=== PATIENT | female | born 1980 | race African-American/Black ===

== ENCOUNTER 2019-02-13 08:21 | Inpatient (IN) | payer MEDICAID ==
[~2019-02-13] VITALS: Ht 152.4 cm; Wt 81.3 kg
[~2019-02-13 08:21] MED LIST: AMLO10TA80 PO; BENZ1TAB7 PO; CLON0.1T PO; FERR-43 PO; FOLI-43 PO; METO-539 PO; MIRT15TA6 PO; OMEP20CA5 PO; PHEN100C12 PO; chlorpromazine; levetiracetam; oxcarbazepine
[2019-02-13 09:32] LABS: BASOPHILS % 0.3 % (0.0-2.0); HEMATOCRIT. 42.3 % (36.0-48.0); HEMOGLOBIN. 14.7 g/dL (12.0-16.0); LYMPHOCYTES % 23.5 % (20.0-50.0); MEAN CORPUSCULAR HEMOGLOBIN 31.2 pg (28.0-32.0); MEAN PLATELET VOLUME 7.5 fl (7.4-10.4); NEUTROPHILS % 65.2 % (40.0-76.0); PLATELET 252 x1000/uL (130-400); RED BLOOD CELL COUNT 4.71 mill/uL (4.2-5.4); RED CELL DISTRIBUTION WIDTH 13.3 % (11.6-14.6)
[2019-02-13 09:38] LABS: CHLORIDE 106 mEq/L (98-107)
[2019-02-13 09:44] LABS: ETHANOL BLOOD < 10 mg/dL
[2019-02-13 09:48] LABS: PHENOBARBITAL 2.1 ug/mL (15.0-40.0)
[2019-02-13 09:59] LABS: CLARITY URINE CLEAR (CLEAR); COLOR URINE YELLOW (YELLOW); KETONES URINE TRACE (NEGATIVE); LEUKOCYTE ESTERASE URINE NEGATIVE (NEGATIVE); NITRITE URINE NEGATIVE (NEGATIVE); OCCULT BLOOD URINE NEGATIVE (NEGATIVE); PH URINE 5.5 (4.5-8.0); PROTEIN URINE NEGATIVE (NEGATIVE); SPECIFIC GRAVITY URINE 1.021 (1.005-1.030); UROBILINOGEN URINE 0.2 E.U./dL (0.2-1.0)
[2019-02-13 10:18] LABS: *COCAINE SCREEN URINE NEGATIVE (NEGATIVE)
[2019-02-13 10:19] LABS: *AMPHETAMINES SCREEN URINE NEGATIVE (NEGATIVE); *BARBITURATES SCREEN URINE NEGATIVE (NEGATIVE); *BENZODIAZEPINES SCREEN URINE NEGATIVE (NEGATIVE); CANNABINOID URINE SCREEN NEGATIVE (NEGATIVE); METHADONE URINE SCREEN NEGATIVE (NEGATIVE); OPIATES URINE SCREEN NEGATIVE (NEGATIVE); PHENCYCLIDINE URINE SCREEN NEGATIVE (NEGATIVE)
[2019-02-14] VITALS (12 sets, daily range): BP systolic 110–121; BP diastolic 53–64
[2019-02-14] MEDS ORDERED: CLONIDINE 0.1MG TABLET PO PRN (05:30)
[2019-02-14] MEDS: OMEPRAZOLE 20MG CAPSULE EXTENDED RELEASE PO SCH (06:49)
[2019-02-14] MEDS: CHLORDIAZEPOXIDE 25MG CAPSULE PO SCH ×2 (06:49→18:02)
[2019-02-14] MEDS: FERROUS SULFATE 300MG/5ML UDC PO SCH (08:00)
[2019-02-14 08:52] LABS: BASOPHILS % 0.3 % (0.0-2.0); HEMATOCRIT. 42.3 % (36.0-48.0); HEMOGLOBIN. 14.6 g/dL (12.0-16.0); LYMPHOCYTES % 21.3 % (20.0-50.0); MEAN CORPUSCULAR HEMOGLOBIN 30.9 pg (28.0-32.0); MEAN CORPUSCULAR VOLUME 89.7 fL (81.0-99.0); MEAN PLATELET VOLUME 7.8 fl (7.4-10.4); MONOCYTES % 9.1 % (2.0-8.0); NEUTROPHILS % 69.3 % (40.0-76.0); PLATELET 279 x1000/uL (130-400); RED BLOOD CELL COUNT 4.72 mill/uL (4.2-5.4); RED CELL DISTRIBUTION WIDTH 13.2 % (11.6-14.6)
[2019-02-14] MEDS ORDERED: LEVETIRACETAM 250MG TABLET PO SCH (09:00)
[2019-02-14] MEDS: AMLODIPINE 10MG TABLET PO SCH (09:04)
[2019-02-14] MEDS: METOPROLOL TARTRATE 50MG TABLET PO SCH ×2 (09:05→21:48)
[2019-02-14] MEDS: OXCARBAZEPINE 300MG TABLET PO SCH ×2 (09:05→21:48)
[2019-02-14] MEDS: FOLIC ACID 1MG TABLET PO SCH (09:05)
[2019-02-14 09:11] LABS: CHLORIDE 105 mEq/L (98-107)
[2019-02-14 09:26] LABS: PHOSPHORUS 4.1 mg/dL (2.5-4.9)
[2019-02-14] MEDS: PHENYTOIN SODIUM EXTENDED 100MG CAPSULE PO SCH (21:46)
[2019-02-14] MEDS: LEVETIRACETAM 500MG TABLET PO SCH (21:48)
[2019-02-14] MEDS: MIRTAZAPINE 15MG TABLET PO SCH (21:48)
[2019-02-14] MEDS: BENZTROPINE MESYLATE 1MG TABLET PO SCH (23:29)
[2019-02-15] VITALS (13 sets, daily range): BP systolic 90–147; BP diastolic 52–97
[2019-02-15] MEDS: CHLORDIAZEPOXIDE 25MG CAPSULE PO SCH ×2 (05:56→17:39)
[2019-02-15] MEDS: OXCARBAZEPINE 300MG TABLET PO SCH ×2 (08:54→21:16)
[2019-02-15] MEDS: OMEPRAZOLE 20MG CAPSULE EXTENDED RELEASE PO SCH (08:54)
[2019-02-15] MEDS: FOLIC ACID 1MG TABLET PO SCH (08:54)
[2019-02-15] MEDS: FERROUS SULFATE 300MG/5ML UDC PO SCH (08:54)
[2019-02-15] MEDS: LEVETIRACETAM 500MG TABLET PO SCH ×2 (08:55→21:16)
[2019-02-15] MEDS: METOPROLOL TARTRATE 50MG TABLET PO SCH ×2 (08:55→21:17)
[2019-02-15] MEDS: AMLODIPINE 10MG TABLET PO SCH (08:55)
[2019-02-15] MEDS: PHENYTOIN SODIUM EXTENDED 100MG CAPSULE PO SCH (21:16)
[2019-02-15] MEDS: BENZTROPINE MESYLATE 1MG TABLET PO SCH (21:16)
[2019-02-15] MEDS: MIRTAZAPINE 15MG TABLET PO SCH (21:16)
[2019-02-16] VITALS (11 sets, daily range): BP systolic 105–162; BP diastolic 49–117
[2019-02-16] MEDS: CHLORDIAZEPOXIDE 25MG CAPSULE PO SCH (05:12)
[2019-02-16] MEDS: FERROUS SULFATE 300MG/5ML UDC PO SCH (08:00)
[2019-02-16] MEDS: FOLIC ACID 1MG TABLET PO SCH (08:40)
[2019-02-16] MEDS: OXCARBAZEPINE 300MG TABLET PO SCH (08:40)
[2019-02-16] MEDS: LEVETIRACETAM 500MG TABLET PO SCH (08:40)
[2019-02-16] MEDS: OMEPRAZOLE 20MG CAPSULE EXTENDED RELEASE PO SCH (08:40)
[2019-02-16] MEDS: AMLODIPINE 10MG TABLET PO SCH (08:40)
[2019-02-16] MEDS: METOPROLOL TARTRATE 50MG TABLET PO SCH (08:41)
== END 2019-02-16 15:10 | disposition home or self-care (01) | DRG 53 ==
LOC: ER 08:21 → 5EST 14:23 → 3WST 14:23 → UNDOADMIN 14:23 → ENRESERV 20:29
PROVIDERS: ADMIT Internal Medicine; ATTEND Internal Medicine
PROC: 4A00X4Z Measurement of Central Nervous Electrical Activity, External Approach (ICD-10-PCS; principal; 2019-02-16)
DX: G40.909 Epilepsy, unspecified, not intractable, without status epilepticus (principal); D32.0 Benign neoplasm of cerebral meninges; I10 Essential (primary) hypertension; R62.50 Unspecified lack of expected normal physiological development in childhood
CPT/HCPCS: 36415; 73552; 73590; 80048; 80184; 80185; 80305; 80320; 82962; 83735; 84100; 99285; G0480

== ENCOUNTER 2019-03-05 06:10 | Inpatient (IN) | payer MEDICAID ==
[~2019-03-05] VITALS: Ht 149.9 cm; Wt 82.1 kg
[2019-03-05] MEDS ORDERED: LIDOCAINE HCL/PF 1% 10 MG/ML 5ML VIAL IJ ONE (06:30)
[2019-03-05 07:30] LABS: CHLORIDE 103 mEq/L (98-107)
[2019-03-05 07:33] LABS: ETHANOL BLOOD < 10 mg/dL
[2019-03-05 07:44] LABS: BASOPHILS % 0.2 % (0.0-2.0); HEMOGLOBIN. 14.4 g/dL (12.0-16.0); LYMPHOCYTES % 15.3 % (20.0-50.0); MEAN CORPUSCULAR HEMOGLOBIN 31.1 pg (28.0-32.0); MEAN CORPUSCULAR VOLUME 90.3 fL (81.0-99.0); MEAN PLATELET VOLUME 8.3 fl (7.4-10.4); MONOCYTES % 7.4 % (2.0-8.0); NEUTROPHILS % 77.1 % (40.0-76.0); PLATELET 252 x1000/uL (130-400); RED BLOOD CELL COUNT 4.65 mill/uL (4.2-5.4); RED CELL DISTRIBUTION WIDTH 13.5 % (11.6-14.6)
[2019-03-05 10:05] LABS: CLARITY URINE CLEAR (CLEAR); COLOR URINE YELLOW (YELLOW); KETONES URINE NEGATIVE (NEGATIVE); LEUKOCYTE ESTERASE URINE NEGATIVE (NEGATIVE); NITRITE URINE NEGATIVE (NEGATIVE); OCCULT BLOOD URINE NEGATIVE (NEGATIVE); PROTEIN URINE NEGATIVE (NEGATIVE); SPECIFIC GRAVITY URINE 1.008 (1.005-1.030); UROBILINOGEN URINE 0.2 E.U./dL (0.2-1.0)
[2019-03-05 10:24] LABS: *AMPHETAMINES SCREEN URINE NEGATIVE (NEGATIVE); *BARBITURATES SCREEN URINE NEGATIVE (NEGATIVE); *BENZODIAZEPINES SCREEN URINE NEGATIVE (NEGATIVE); *COCAINE SCREEN URINE NEGATIVE (NEGATIVE); CANNABINOID URINE SCREEN NEGATIVE (NEGATIVE); METHADONE URINE SCREEN NEGATIVE (NEGATIVE); OPIATES URINE SCREEN NEGATIVE (NEGATIVE); PHENCYCLIDINE URINE SCREEN NEGATIVE (NEGATIVE)
[2019-03-05 12:00] VITALS: BP 155/92
[2019-03-05] MEDS ORDERED: CHLO100T22 PO (14:40)
[2019-03-05] MEDS ORDERED: OXCA600T20 PO (14:40)
[2019-03-05] MEDS ORDERED: LEVE750T66 PO (14:40)
[2019-03-05] MEDS ORDERED: LEVE500T98 PO (14:40)
[2019-03-05] MEDS ORDERED: CHLO200T9 PO (14:40)
[2019-03-05] MEDS ORDERED: ONDANSETRON HCL 4MG TABLET PO PRN (15:00)
[2019-03-05 16:00] VITALS: BP 141/103
[2019-03-05] MEDS: SODIUM CHLORIDE 0.9% 1,000 ML IV SCH (18:24)
[2019-03-05 20:00] VITALS: BP 139/88
[2019-03-05] MEDS: AMLODIPINE 10MG TABLET PO SCH (20:45)
[2019-03-05] MEDS ORDERED: MEDICATION NOT ON FORMULARY EA (Levetiracetam 750 MG) PO SCH (20:45)
[2019-03-05] MEDS: METOPROLOL TARTRATE 50MG TABLET PO SCH (21:00)
[2019-03-05] MEDS: OXCARBAZEPINE 300MG TABLET PO SCH (21:00)
[2019-03-05] MEDS: LEVETIRACETAM 250MG TABLET PO SCH (21:00)
[2019-03-06] VITALS: BP 178/95
[2019-03-06 05:04] VITALS: BP 163/99
[2019-03-06] MEDS ORDERED: HYDRALAZINE 20MG/ML VIAL IV PRN (06:00)
[2019-03-06] MEDS: LORAZEPAM 2MG/ML CPJ IV PRN ×2 (06:08→15:03)
[2019-03-06] MEDS: SODIUM CHLORIDE 0.9% 1,000 ML IV SCH ×2 (06:09→17:47)
[2019-03-06 06:22] LABS: BASOPHILS % 0.2 % (0.0-2.0); HEMOGLOBIN. 13.6 g/dL (12.0-16.0); LYMPHOCYTES % 17.9 % (20.0-50.0); MEAN CORPUSCULAR HEMOGLOBIN 31.3 pg (28.0-32.0); MEAN CORPUSCULAR VOLUME 89.9 fL (81.0-99.0); MEAN PLATELET VOLUME 8.1 fl (7.4-10.4); MONOCYTES % 9.6 % (2.0-8.0); NEUTROPHILS % 72.3 % (40.0-76.0); PLATELET 258 x1000/uL (130-400); RED BLOOD CELL COUNT 4.34 mill/uL (4.2-5.4); RED CELL DISTRIBUTION WIDTH 13.6 % (11.6-14.6)
[2019-03-06 07:39] LABS: CHLORIDE 109 mEq/L (98-107)
[2019-03-06] MEDS ORDERED: ENOXAPARIN 30MG/0.3ML SYR SUBCUT SCH (09:00)
[2019-03-06] MEDS: LEVETIRACETAM 250MG TABLET PO SCH ×2 (11:13→17:44)
[2019-03-06] MEDS: AMLODIPINE 10MG TABLET PO SCH (11:14)
[2019-03-06] MEDS: METOPROLOL TARTRATE 50MG TABLET PO SCH ×2 (11:14→21:06)
[2019-03-06] MEDS: ACETAMINOPHEN 325MG TABLET PO PRN (11:14)
[2019-03-06] MEDS: OXCARBAZEPINE 300MG TABLET PO SCH ×2 (11:14→21:06)
[2019-03-06 12:00] VITALS: BP 176/102
[2019-03-06 16:00] VITALS: BP 144/84
[2019-03-06] MEDS: CLONIDINE 0.1MG TABLET PO SCH (17:30)
[2019-03-06] MEDS: MIRTAZAPINE 15MG TABLET PO SCH (17:44)
[2019-03-06 20:00] VITALS: BP 113/52
[2019-03-06 21:03] VITALS: BP 125/69
[2019-03-07] VITALS: BP 132/87
[2019-03-07 04:00] VITALS: BP 141/87
[2019-03-07] MEDS: SODIUM CHLORIDE 0.9% 1,000 ML IV SCH ×2 (06:44→20:44)
[2019-03-07 06:51] LABS: BASOPHILS % 0.2 % (0.0-2.0); HEMATOCRIT. 36.8 % (36.0-48.0); HEMOGLOBIN. 12.8 g/dL (12.0-16.0); LYMPHOCYTES % 22.9 % (20.0-50.0); MEAN CORPUSCULAR HEMOGLOBIN 31.5 pg (28.0-32.0); MEAN CORPUSCULAR VOLUME 90.4 fL (81.0-99.0); MEAN PLATELET VOLUME 8.2 fl (7.4-10.4); MONOCYTES % 9.4 % (2.0-8.0); NEUTROPHILS % 67.5 % (40.0-76.0); PLATELET 243 x1000/uL (130-400); RED BLOOD CELL COUNT 4.07 mill/uL (4.2-5.4); RED CELL DISTRIBUTION WIDTH 13.4 % (11.6-14.6)
[2019-03-07 07:54] LABS: CHLORIDE 110 mEq/L (98-107)
[2019-03-07 08:00] VITALS: BP 156/104
[2019-03-07] MEDS: ENOXAPARIN 40MG/0.4ML SYR SUBCUT SCH (09:53)
[2019-03-07] MEDS: OXCARBAZEPINE 300MG TABLET PO SCH ×2 (09:53→20:42)
[2019-03-07] MEDS: LEVETIRACETAM 250MG TABLET PO SCH ×2 (09:53→16:14)
[2019-03-07] MEDS: AMLODIPINE 10MG TABLET PO SCH (09:54)
[2019-03-07] MEDS: METOPROLOL TARTRATE 50MG TABLET PO SCH ×2 (09:54→20:42)
[2019-03-07 11:54] VITALS: BP 145/96
[2019-03-07] MEDS: LORAZEPAM 2MG/ML CPJ IV PRN (13:28)
[2019-03-07 16:06] VITALS: BP 159/102
[2019-03-07] MEDS: CLONIDINE 0.1MG TABLET PO SCH (16:14)
[2019-03-07] MEDS: MIRTAZAPINE 15MG TABLET PO SCH (16:14)
[2019-03-07 20:00] VITALS: BP 154/79
[2019-03-07] MEDS ORDERED: PHENYTOIN SODIUM EXTENDED 100MG CAPSULE PO SCH (21:00)
[2019-03-08] VITALS (7 sets, daily range): BP systolic 107–170; BP diastolic 59–96
[2019-03-08] MEDS: LORAZEPAM 2MG/ML CPJ IV PRN (02:19)
[2019-03-08 07:15] LABS: BASOPHILS % 0.2 % (0.0-2.0); HEMATOCRIT. 40.2 % (36.0-48.0); HEMOGLOBIN. 13.9 g/dL (12.0-16.0); LYMPHOCYTES % 21.8 % (20.0-50.0); MEAN CORPUSCULAR HEMOGLOBIN 31.3 pg (28.0-32.0); MEAN CORPUSCULAR VOLUME 90.6 fL (81.0-99.0); MEAN PLATELET VOLUME 8.2 fl (7.4-10.4); MONOCYTES % 10.1 % (2.0-8.0); NEUTROPHILS % 67.9 % (40.0-76.0); PLATELET 270 x1000/uL (130-400); RED BLOOD CELL COUNT 4.44 mill/uL (4.2-5.4); RED CELL DISTRIBUTION WIDTH 13.2 % (11.6-14.6)
[2019-03-08] MEDS: LEVETIRACETAM 250MG TABLET PO SCH (09:28)
[2019-03-08] MEDS: OXCARBAZEPINE 300MG TABLET PO SCH (09:28)
[2019-03-08] MEDS: AMLODIPINE 10MG TABLET PO SCH (09:29)
[2019-03-08] MEDS: METOPROLOL TARTRATE 50MG TABLET PO SCH (09:29)
[2019-03-08] MEDS: ENOXAPARIN 40MG/0.4ML SYR SUBCUT SCH (09:30)
[2019-03-08] MEDS: ACETAMINOPHEN 325MG TABLET PO PRN (16:41)
== END 2019-03-08 17:18 | disposition home or self-care (01) | DRG 199 ==
LOC: ER 06:21 → 6WST 10:26 → EDBEDREQTM 10:29 → EDBEDREQ 10:29 → ENRESERV 10:39 → 5WST 03-08 12:08
PROVIDERS: ADMIT Internal Medicine; ATTEND Internal Medicine
PROC: 0CQ0XZZ Repair Upper Lip, External Approach (ICD-10-PCS; 2019-03-05)
PROC: 4A00X4Z Measurement of Central Nervous Electrical Activity, External Approach (ICD-10-PCS; principal; 2019-03-07)
DX: I16.0 Hypertensive urgency (principal); G40.409 Other generalized epilepsy and epileptic syndromes, not intractable, without status epilepticus; I10 Essential (primary) hypertension; S01.511A Laceration without foreign body of lip, initial encounter; T42.0X5A Adverse effect of hydantoin derivatives, initial encounter; X58.XXXA Exposure to other specified factors, initial encounter; Z86.011 Personal history of benign neoplasm of the brain; Z79.899 Other long term (current) drug therapy; Y93.89 Activity, other specified; Y92.89 Other specified places as the place of occurrence of the external cause; Y99.8 Other external cause status
CPT/HCPCS: 12011; 36415; 80048; 80185; 80305; 80320; 82542; 92610; 99285; C1893; J0360; J1650; J2060; J3490; J7030; G0480

== ENCOUNTER 2019-11-07 08:24 | Emergency (ER) | payer MEDICAID ==
[~2019-11-07] VITALS: Ht 149.9 cm; Wt 91.0 kg
[~2019-11-07 08:24] MED LIST changes: +CHLO100T22 PO; +CHLO200T9 PO; +LEVE500T98 PO; +LEVE750T66 PO; +OMEP20CA14 PO; -OMEP20CA5 PO; +OXCA600T20 PO; -chlorpromazine; -levetiracetam; -oxcarbazepine
[2019-11-07] MEDS ORDERED: LIDOCAINE HCL/PF 1% 10 MG/ML 5ML VIAL IJ ONE (09:00)
[2019-11-07] MEDS ORDERED: BACITRACIN ZINC OINT UDPKT TOP ONE ×2 (09:00→10:00)
[2019-11-07] MEDS ORDERED: ACETAMINOPHEN 325MG TABLET PO ONE (09:00)
[2019-11-07 11:52] VITALS: BP 129/78
== END 2019-11-07 11:59 | disposition home or self-care (01) ==
LOC: ER 08:24
DX: S09.8XXA Other specified injuries of head, initial encounter (principal); S01.119A Laceration without foreign body of unspecified eyelid and periocular area, initial encounter; I10 Essential (primary) hypertension; R56.9 Unspecified convulsions; D64.9 Anemia, unspecified; W18.11XA Fall from or off toilet without subsequent striking against object, initial encounter; Y93.F9 Activity, other caregiving
CPT/HCPCS: 12011; 70450; 99284; J3490

== ENCOUNTER 2021-10-19 15:50 | Inpatient (IN) | payer MEDICAID, OTHER ==
[~2021-10-19] VITALS: Ht 157.5 cm; Wt 64.4 kg
[~2021-10-19 15:50] MED LIST changes: +AMLO10TA4 MT; +ASCO-316 PO; +BENZ1TAB7 MT; +CHOL400D7 PO; +DES150 MT; +DOCU-150 MT; +LEVE1000 MT; +LOSA50TA3 MT; +MIRT-89 PO; -MIRT15TA6 PO; +OLAN10TA3 MT; +OMEP20TA2 MT; +TEMA30CA MT
[2021-10-19] MEDS ORDERED: ASPIRIN 81MG TABLET PO ONE (16:15)
[2021-10-19] MEDS ORDERED: CEFTRIAXONE 1 G PREMIX 50 ML IV ONE (16:30)
[2021-10-19] MEDS: LACTATED RINGERS 1,000 ML IV SCH ×2 (17:37→20:24)
[2021-10-19 17:46] LABS: BASOPHILS % 0.2 % (0.0-2.0); EOSINOPHILS % 0.1 % (0.0-5.0); HEMATOCRIT. 31.3 % (36.0-48.0); HEMOGLOBIN. 10.6 g/dL (12.0-16.0); LYMPHOCYTES % 12.6 % (20.0-50.0); MEAN CORPUSCULAR HEMOGLOBIN 29.2 pg (28.0-32.0); MEAN CORPUSCULAR VOLUME 85.9 fL (81.0-99.0); MEAN PLATELET VOLUME 10.1 fl (7.4-10.4); MONOCYTES % 2.7 % (2.0-8.0); NEUTROPHILS % 84.4 % (40.0-76.0); PLATELET 71 x1000/uL (130-400); RED BLOOD CELL COUNT 3.65 mill/uL (4.2-5.4); RED CELL DISTRIBUTION WIDTH 17.9 % (11.6-14.6)
[2021-10-19 17:53] LABS: CHLORIDE 110 mEq/L (98-107)
[2021-10-19] MEDS ORDERED: LACTATED RINGERS 1,000 ML IV SCH (19:45)
[2021-10-19] MEDS ORDERED: PIPERACILLIN/TAZ 3.375G PREMIX 50 ML IV ONE (19:45)
[2021-10-19] MEDS ORDERED: NOREPINEPHRINE 8MG/250ML PMX 250 ML IV ONE (21:45)
[2021-10-19] MEDS ORDERED: NOREPINEPHRINE 8 MG in SODIUM CHLORIDE 0.9% 250 ML IV ONE (22:30)
[2021-10-19] MEDS ORDERED: NOREPINEPHRINE 8 MG in SODIUM CHLORIDE 0.9% 242 ML IV ONE (22:30)
[2021-10-20] VITALS (7 sets, daily range): BP systolic 91–127; BP diastolic 53–68
[2021-10-20 01:18] LABS: CLARITY URINE CLEAR (CLEAR); COLOR URINE YELLOW (YELLOW); KETONES URINE NEGATIVE (NEGATIVE); LEUKOCYTE ESTERASE URINE NEGATIVE (NEGATIVE); NITRITE URINE NEGATIVE (NEGATIVE); OCCULT BLOOD URINE 1+ (NEGATIVE); PROTEIN URINE 1+ (NEGATIVE); SPECIFIC GRAVITY URINE 1.019 (1.005-1.030); UROBILINOGEN URINE 0.2 E.U./dL (0.2-1.0)
[2021-10-20] MEDS ORDERED: ACETAMINOPHEN 325MG TABLET PO PRN (10:00)
[2021-10-20] MEDS ORDERED: CEFEPIME 1,000 MG in DEXTROSE 5% WATER 50 ML IV SCH ×2 (10:00→14:00)
[2021-10-20] MEDS ORDERED: IPRATROPIUM/ALBUTEROL 0.5-3(2.5)MG/3ML NEB HHN PRN ×2 (10:00→16:30)
[2021-10-20] MEDS: ONDANSETRON HCL 4MG/2ML INJ IV PRN (11:54)
[2021-10-20] MEDS ORDERED: BISACODYL 10MG SUPP PR NR (16:30)
[2021-10-20] MEDS: TRAZODONE HCL 50MG TABLET PO SCH ×2 (16:55→16:56)
[2021-10-20] MEDS ORDERED: OLANZAPINE 10MG TABLET PO SCH (17:00)
[2021-10-20] MEDS: PIPERACILLIN/TAZOBACTAM 3.375 G in DEXTROSE 5% WATER 50 ML IV SCH ×2 (17:23→23:13)
[2021-10-20] MEDS ORDERED: IPRATROPIUM/ALBUTEROL 0.5-3(2.5)MG/3ML NEB HHN SCH (18:00)
[2021-10-20] MEDS ORDERED: TEMAZEPAM 15MG CAPSULE PO SCH (21:00)
[2021-10-20] MEDS ORDERED: TEMAZEPAM 15MG CAPSULE PO ONE (21:00)
[2021-10-20] MEDS ORDERED: LEVETIRACETAM 500MG/5ML CUP PO SCH (21:00)
[2021-10-20] MEDS: BENZTROPINE MESYLATE 1MG TABLET PO SCH (21:00)
[2021-10-21] VITALS (37 sets, daily range): BP systolic 55–139; BP diastolic 27–112
[2021-10-21] MEDS: PIPERACILLIN/TAZOBACTAM 3.375 G in DEXTROSE 5% WATER 50 ML IV SCH ×3 (05:38→22:15)
[2021-10-21 06:50] LABS: BASOPHILS % 0.1 % (0.0-2.0); EOSINOPHILS % 0.1 % (0.0-5.0); HEMATOCRIT. 29.3 % (36.0-48.0); HEMOGLOBIN. 10.3 g/dL (12.0-16.0); LYMPHOCYTES % 10.1 % (20.0-50.0); MEAN CORPUSCULAR HEMOGLOBIN 30.3 pg (28.0-32.0); MEAN CORPUSCULAR VOLUME 86.5 fL (81.0-99.0); MEAN PLATELET VOLUME 10.5 fl (7.4-10.4); MONOCYTES % 2.2 % (2.0-8.0); NEUTROPHILS % 87.5 % (40.0-76.0); PLATELET 55 x1000/uL (130-400); RED BLOOD CELL COUNT 3.39 mill/uL (4.2-5.4); RED CELL DISTRIBUTION WIDTH 18.9 % (11.6-14.6)
[2021-10-21 06:58] LABS: CHLORIDE 111 mEq/L (98-107)
[2021-10-21] MEDS ORDERED: OMEPRAZOLE 20MG CAPSULE EXTENDED RELEASE PO SCH (07:30)
[2021-10-21] MEDS ORDERED: DEXTROSE 50% WATER 50ML SYRINGE IV NR (07:45)
[2021-10-21] MEDS: LEVETIRACETAM 1,000 MG in SODIUM CHLORIDE 0.9% 100 ML IV SCH ×2 (08:22→21:41)
[2021-10-21] MEDS: PANTOPRAZOLE SODIUM 40 MG/VIAL IV SCH (08:53)
[2021-10-21] MEDS: TRAZODONE HCL 50MG TABLET PO SCH (08:55)
[2021-10-21] MEDS: BENZTROPINE MESYLATE 1MG TABLET PO SCH ×2 (08:55→21:42)
[2021-10-21] MEDS: LOSARTAN POTASSIUM 50 MG TABLET PO SCH (08:55)
[2021-10-21] MEDS: DOCUSATE SODIUM 100MG CAPSULE PO SCH (08:55)
[2021-10-21] MEDS: AMLODIPINE 10MG TABLET PO SCH (08:55)
[2021-10-21] MEDS: ASCORBIC ACID 500 MG TABLET PO SCH ×2 (09:00→16:46)
[2021-10-21] MEDS ORDERED: OLANZAPINE 10 MG/VIAL IM SCH (09:00)
[2021-10-21] MEDS ORDERED: SODIUM CHLORIDE 0.9% 500 ML IV ONE (11:45)
[2021-10-21] MEDS ORDERED: MIDODRINE HCL 5MG TABLET PO SCH (12:00)
[2021-10-21] MEDS ORDERED: DEXT 5%/0.9% NACL 1,000 ML IV SCH (12:00)
[2021-10-21] MEDS: DEXT 5%/0.45% NACL 1000ML 1,000 ML IV SCH (12:05)
[2021-10-21] MEDS: MIDODRINE HCL 5MG TABLET PO SCH ×3 (13:21→17:15)
[2021-10-21 13:44] LABS: BG BASE EXCESS -1.1 mmol/L (-2.0-2.0); BG CARBOXYHEMOGLOBIN 0.3 % (0.5-1.5); BG DEOXYHEMOGLOBIN 8.9 % (0.0-5.0); BG FRACTION INSPIRED OXYGEN 100; BG HCO3 ACT 23.7 mmol/L (22.0-26.0); BG METHEMOGLOBIN 0.1 % (0.0-1.5); BG OXYGEN SATURATION 91.1 % (92.0-98.5); BG OXYHEMOGLOBIN 90.7 % (94.0-97.0); BG PCO2 40.1 mmHg (35.0-45.0); BG PO2 63.6 mmHg (75.0-100.0); BG SAMPLE SITE RIGHT RADIAL; BG TOTAL HEMOGLOBIN 9.6 g/dL (12.0-18.0); BG VENT MODE MASK - NRB
[2021-10-21] MEDS: METHYLPREDNISOLONE SOD SUCC 40 MG/ML VIAL IV SCH (15:55)
[2021-10-21] MEDS: IPRATROPIUM/ALBUTEROL 0.5-3(2.5)MG/3ML NEB HHN SCH (20:34)
[2021-10-21] MEDS: NOREPINEPHRINE 32 MG in DEXT 5% WATER 218 ML IV PRN (22:20)
[2021-10-22] VITALS (95 sets, daily range): BP systolic 37–163; BP diastolic 15–90
[2021-10-22] MEDS: IPRATROPIUM/ALBUTEROL 0.5-3(2.5)MG/3ML NEB HHN SCH ×6 (00:22→20:16)
[2021-10-22] MEDS: BLOOD SUGAR DIAGNOSTIC STRIP TEST SCH ×4 (00:39→18:03)
[2021-10-22] MEDS: DEXT 5%/0.45% NACL 1000ML 1,000 ML IV SCH ×2 (01:41→15:35)
[2021-10-22] MEDS: METHYLPREDNISOLONE SOD SUCC 40 MG/ML VIAL IV SCH ×3 (03:44→18:12)
[2021-10-22] MEDS: PIPERACILLIN/TAZOBACTAM 3.375 G in DEXTROSE 5% WATER 50 ML IV SCH ×3 (06:02→21:08)
[2021-10-22 06:34] LABS: HEMATOCRIT. 28.9 % (36.0-48.0); HEMOGLOBIN. 9.6 g/dL (12.0-16.0); MEAN CORPUSCULAR HEMOGLOBIN 29.7 pg (28.0-32.0); MEAN CORPUSCULAR VOLUME 88.9 fL (81.0-99.0); MEAN PLATELET VOLUME 10.8 fl (7.4-10.4); PLATELET 77 x1000/uL (130-400); RED BLOOD CELL COUNT 3.25 mill/uL (4.2-5.4); RED CELL DISTRIBUTION WIDTH 19.3 % (11.6-14.6)
[2021-10-22 06:49] LABS: INR 1.3; PARTIAL THROMBOPLASTIN TIME 38.8 sec (23.4-31.0); PROTHROMBIN TIME 13.8 sec (9.6-11.0)
[2021-10-22] MEDS: AMLODIPINE 10MG TABLET PO SCH (09:00)
[2021-10-22] MEDS: LOSARTAN POTASSIUM 50 MG TABLET PO SCH (09:00)
[2021-10-22] MEDS ORDERED: SODIUM CHLORIDE 0.9% 10ML VIAL ONE (09:14)
[2021-10-22] MEDS ORDERED: VECURONIUM BROMIDE 10 MG/VIAL IV ONE (09:14)
[2021-10-22] MEDS ORDERED: ETOMIDATE 2MG/ML 10ML VIAL IV ONE (09:14)
[2021-10-22 09:32] LABS: BG BASE EXCESS -9.3 mmol/L (-2.0-2.0); BG DEOXYHEMOGLOBIN 9.6 % (0.0-5.0); BG HCO3 ACT 16.8 mmol/L (22.0-26.0); BG METHEMOGLOBIN 0.3 % (0.0-1.5); BG OXYGEN SATURATION 90.4 % (92.0-98.5); BG OXYHEMOGLOBIN 90.1 % (94.0-97.0); BG PH 7.274 (7.350-7.450); BG PO2 70.9 mmHg (75.0-100.0); BG SAMPLE SITE RIGHT RADIAL; BG TOTAL HEMOGLOBIN 10.1 g/dL (12.0-18.0); BG VENT MODE MASK - NRB
[2021-10-22] MEDS: PANTOPRAZOLE SODIUM 40 MG/VIAL IV SCH (09:44)
[2021-10-22] MEDS: ONDANSETRON HCL 4MG/2ML INJ IV PRN (09:44)
[2021-10-22] MEDS: DOCUSATE SODIUM 100MG CAPSULE PO SCH (09:45)
[2021-10-22] MEDS: BENZTROPINE MESYLATE 1MG TABLET PO SCH ×2 (09:47→21:08)
[2021-10-22] MEDS: ASCORBIC ACID 500 MG TABLET PO SCH ×2 (09:47→16:44)
[2021-10-22] MEDS: MIDODRINE HCL 5MG TABLET PO SCH ×3 (09:47→16:44)
[2021-10-22 10:17] LABS: NUCLEATED RED BLOOD CELLS 3 /100 WBC; PLATELET ESTIMATE DECREASED
[2021-10-22] MEDS ORDERED: SODIUM BICARBONATE 8.4% 1 MEQ/ML 50ML SYR IV NR (11:00)
[2021-10-22] MEDS ORDERED: FENTANYL CITRATE/PF 2,500 MCG in SODIUM CHLORIDE 0.9% 200 ML IV PRN (12:30)
[2021-10-22] MEDS ORDERED: MIDAZOLAM HCL 100 MG in SODIUM CHLORIDE 0.9% 80 ML IV PRN (12:30)
[2021-10-22] MEDS: LEVETIRACETAM 1,000 MG in SODIUM CHLORIDE 0.9% 100 ML IV SCH ×2 (14:24→21:08)
[2021-10-22 14:27] LABS: BG BASE EXCESS -2.4 mmol/L (-2.0-2.0); BG CARBOXYHEMOGLOBIN 0.3 % (0.5-1.5); BG FRACTION INSPIRED OXYGEN 100; BG HCO3 ACT 21.2 mmol/L (22.0-26.0); BG METHEMOGLOBIN 0.5 % (0.0-1.5); BG OXYHEMOGLOBIN 98.2 % (94.0-97.0); BG PCO2 32.3 mmHg (35.0-45.0); BG PH 7.435 (7.350-7.450); BG PO2 264.4 mmHg (75.0-100.0); BG SAMPLE SITE RIGHT RADIAL; BG TOTAL HEMOGLOBIN 10.1 g/dL (12.0-18.0); BG VENT MODE VENT - AC/VC
[2021-10-22] MEDS: NOREPINEPHRINE 32 MG in DEXT 5% WATER 218 ML IV PRN (16:45)
[2021-10-23] VITALS (93 sets, daily range): BP systolic 81–176; BP diastolic 38–102
[2021-10-23] MEDS: IPRATROPIUM/ALBUTEROL 0.5-3(2.5)MG/3ML NEB HHN SCH ×5 (00:14→20:57)
[2021-10-23] MEDS: BLOOD SUGAR DIAGNOSTIC STRIP TEST SCH ×4 (00:34→17:16)
[2021-10-23] MEDS: METHYLPREDNISOLONE SOD SUCC 40 MG/ML VIAL IV SCH ×3 (03:12→18:35)
[2021-10-23] MEDS: DEXT 5%/0.45% NACL 1000ML 1,000 ML IV SCH ×2 (04:01→20:14)
[2021-10-23] MEDS: PIPERACILLIN/TAZOBACTAM 3.375 G in DEXTROSE 5% WATER 50 ML IV SCH (06:54)
[2021-10-23] MEDS: DOPAMINE 800MG PREMIX (DOUBLE) 250 ML IV PRN ×2 (07:00→20:55)
[2021-10-23 07:40] LABS: HEMATOCRIT. 27.3 % (36.0-48.0); HEMOGLOBIN. 9.2 g/dL (12.0-16.0); MEAN CORPUSCULAR HEMOGLOBIN 29.2 pg (28.0-32.0); MEAN CORPUSCULAR VOLUME 87.4 fL (81.0-99.0); MEAN PLATELET VOLUME 10.4 fl (7.4-10.4); PLATELET 74 x1000/uL (130-400); RED BLOOD CELL COUNT 3.13 mill/uL (4.2-5.4); RED CELL DISTRIBUTION WIDTH 19.9 % (11.6-14.6)
[2021-10-23 08:14] LABS: BG BASE EXCESS 2.7 mmol/L (-2.0-2.0); BG CARBOXYHEMOGLOBIN 0.1 % (0.5-1.5); BG DEOXYHEMOGLOBIN 1.2 % (0.0-5.0); BG FRACTION INSPIRED OXYGEN 60; BG METHEMOGLOBIN 0.5 % (0.0-1.5); BG OXYGEN SATURATION 98.8 % (92.0-98.5); BG OXYHEMOGLOBIN 98.2 % (94.0-97.0); BG PH 7.539 (7.350-7.450); BG PO2 206.6 mmHg (75.0-100.0); BG SAMPLE SITE RIGHT RADIAL; BG TOTAL HEMOGLOBIN 9.2 g/dL (12.0-18.0); BG VENT MODE VENT - AC/VC
[2021-10-23 08:15] LABS: NUCLEATED RED BLOOD CELLS 1 /100 WBC; PLATELET ESTIMATE DECREASED
[2021-10-23] MEDS: AMLODIPINE 10MG TABLET PO SCH (09:00)
[2021-10-23] MEDS: LOSARTAN POTASSIUM 50 MG TABLET PO SCH (09:00)
[2021-10-23] MEDS: ASCORBIC ACID 500 MG TABLET PO SCH ×2 (09:30→17:17)
[2021-10-23] MEDS: BENZTROPINE MESYLATE 1MG TABLET PO SCH ×2 (09:30→21:01)
[2021-10-23] MEDS: PANTOPRAZOLE SODIUM 40 MG/VIAL IV SCH (09:30)
[2021-10-23] MEDS: MIDODRINE HCL 5MG TABLET PO SCH ×3 (09:30→17:17)
[2021-10-23] MEDS: LEVETIRACETAM 1,000 MG in SODIUM CHLORIDE 0.9% 100 ML IV SCH ×2 (09:30→20:56)
[2021-10-23] MEDS: DOCUSATE SODIUM 100MG CAPSULE PO SCH (09:30)
[2021-10-23] MEDS ORDERED: DEXTROSE 50% WATER 50ML SYRINGE IV PRN (12:00)
[2021-10-23] MEDS ORDERED: BLOOD SUGAR DIAGNOSTIC STRIP TEST SCH (12:50)
[2021-10-23] MEDS: INSULIN LISPRO 100 UNITS/ML SUBCUT SCH ×2 (13:54→17:21)
[2021-10-23] MEDS: ATROPINE SULFATE 1MG/10ML SYR IV PRN (15:19)
[2021-10-23] MEDS: CEFEPIME 1,000 MG in DEXTROSE 5% WATER 50 ML IV SCH (15:28)
[2021-10-23] MEDS: LACTULOSE 20G/30ML UDC PO SCH (22:48)
[2021-10-24] VITALS (88 sets, daily range): BP systolic 86–148; BP diastolic 33–78
[2021-10-24] MEDS: BLOOD SUGAR DIAGNOSTIC STRIP TEST SCH ×4 (00:23→17:33)
[2021-10-24] MEDS: IPRATROPIUM/ALBUTEROL 0.5-3(2.5)MG/3ML NEB HHN SCH ×5 (01:29→20:29)
[2021-10-24] MEDS: METHYLPREDNISOLONE SOD SUCC 40 MG/ML VIAL IV SCH ×3 (03:43→18:22)
[2021-10-24] MEDS: INSULIN LISPRO 100 UNITS/ML SUBCUT SCH ×4 (06:00→17:33)
[2021-10-24] MEDS: CEFEPIME 1,000 MG in DEXTROSE 5% WATER 50 ML IV SCH ×2 (06:09→18:23)
[2021-10-24] MEDS: LACTULOSE 20G/30ML UDC PO SCH ×3 (06:10→21:11)
[2021-10-24 06:11] LABS: HEMATOCRIT. 25.5 % (36.0-48.0); HEMOGLOBIN. 8.4 g/dL (12.0-16.0); MEAN CORPUSCULAR HEMOGLOBIN 29.3 pg (28.0-32.0); MEAN CORPUSCULAR VOLUME 89.1 fL (81.0-99.0); MEAN PLATELET VOLUME 10.3 fl (7.4-10.4); PLATELET 72 x1000/uL (130-400); RED BLOOD CELL COUNT 2.86 mill/uL (4.2-5.4); RED CELL DISTRIBUTION WIDTH 19.5 % (11.6-14.6)
[2021-10-24] MEDS: DEXT 5%/0.45% NACL 1000ML 1,000 ML IV SCH ×2 (06:11→20:46)
[2021-10-24 06:20] LABS: CHLORIDE 113 mEq/L (98-107)
[2021-10-24] MEDS: DOPAMINE 800MG PREMIX (DOUBLE) 250 ML IV PRN (07:13)
[2021-10-24 08:49] LABS: BG BASE EXCESS -0.4 mmol/L (-2.0-2.0); BG CARBOXYHEMOGLOBIN 0.5 % (0.5-1.5); BG FRACTION INSPIRED OXYGEN 50; BG HCO3 ACT 22.9 mmol/L (22.0-26.0); BG METHEMOGLOBIN 0.7 % (0.0-1.5); BG OXYHEMOGLOBIN 97.8 % (94.0-97.0); BG PCO2 31.9 mmHg (35.0-45.0); BG PH 7.474 (7.350-7.450); BG PO2 178.2 mmHg (75.0-100.0); BG SAMPLE SITE LEFT RADIAL; BG TOTAL HEMOGLOBIN 8.5 g/dL (12.0-18.0); BG TOTAL RESPIRATORY RATE 23 b/min; BG VENT MODE VENT - AC
[2021-10-24] MEDS: DOCUSATE SODIUM 100MG CAPSULE PO SCH (09:00)
[2021-10-24] MEDS: PANTOPRAZOLE SODIUM 40 MG/VIAL IV SCH (09:08)
[2021-10-24] MEDS: ASCORBIC ACID 500 MG TABLET PO SCH ×2 (09:10→18:22)
[2021-10-24] MEDS: MIDODRINE HCL 5MG TABLET PO SCH ×3 (09:11→18:23)
[2021-10-24] MEDS: BENZTROPINE MESYLATE 1MG TABLET PO SCH ×2 (09:11→21:11)
[2021-10-24] MEDS: LEVETIRACETAM 1,000 MG in SODIUM CHLORIDE 0.9% 100 ML IV SCH ×2 (10:05→21:24)
[2021-10-24 10:36] LABS: NUCLEATED RED BLOOD CELLS 3 /100 WBC; PLATELET ESTIMATE DECREASED
[2021-10-25] VITALS (89 sets, daily range): BP systolic 53–190; BP diastolic 33–148
[2021-10-25] MEDS: BLOOD SUGAR DIAGNOSTIC STRIP TEST SCH ×4 (00:23→17:15)
[2021-10-25] MEDS: INSULIN LISPRO 100 UNITS/ML SUBCUT SCH ×4 (00:24→17:15)
[2021-10-25] MEDS: ATROPINE SULFATE 1MG/10ML SYR IV PRN (01:32)
[2021-10-25] MEDS: IPRATROPIUM/ALBUTEROL 0.5-3(2.5)MG/3ML NEB HHN SCH ×6 (01:39→21:07)
[2021-10-25] MEDS: METHYLPREDNISOLONE SOD SUCC 40 MG/ML VIAL IV SCH ×4 (03:24→23:34)
[2021-10-25] MEDS: LACTULOSE 20G/30ML UDC PO SCH ×3 (05:15→22:00)
[2021-10-25] MEDS: CEFEPIME 1,000 MG in DEXTROSE 5% WATER 50 ML IV SCH (05:15)
[2021-10-25] MEDS ORDERED: ATROPINE SULFATE 1MG/10ML SYR IV PRN (06:45)
[2021-10-25 07:00] LABS: CHLORIDE 116 mEq/L (98-107)
[2021-10-25 07:02] LABS: BASOPHILS % 0.2 % (0.0-2.0); EOSINOPHILS % 0.8 % (0.0-5.0); HEMATOCRIT. 22.6 % (36.0-48.0); HEMOGLOBIN. 7.7 g/dL (12.0-16.0); LYMPHOCYTES % 7.9 % (20.0-50.0); MEAN CORPUSCULAR HEMOGLOBIN 30.6 pg (28.0-32.0); MEAN CORPUSCULAR VOLUME 90.3 fL (81.0-99.0); MEAN PLATELET VOLUME 9.7 fl (7.4-10.4); MONOCYTES % 2.8 % (2.0-8.0); NEUTROPHILS % 88.3 % (40.0-76.0); PLATELET 84 x1000/uL (130-400); RED CELL DISTRIBUTION WIDTH 19.3 % (11.6-14.6)
[2021-10-25] MEDS: MIDODRINE HCL 5MG TABLET PO SCH ×3 (09:00→16:20)
[2021-10-25] MEDS: DOCUSATE SODIUM 100MG CAPSULE PO SCH (09:00)
[2021-10-25 09:12] LABS: BG BASE EXCESS 0.4 mmol/L (-2.0-2.0); BG CARBOXYHEMOGLOBIN 0.3 % (0.5-1.5); BG DEOXYHEMOGLOBIN 1.6 % (0.0-5.0); BG FRACTION INSPIRED OXYGEN 40; BG HCO3 ACT 24.5 mmol/L (22.0-26.0); BG METHEMOGLOBIN 0.3 % (0.0-1.5); BG OXYGEN SATURATION 98.4 % (92.0-98.5); BG OXYHEMOGLOBIN 97.8 % (94.0-97.0); BG PCO2 37.1 mmHg (35.0-45.0); BG PH 7.437 (7.350-7.450); BG PO2 136.5 mmHg (75.0-100.0); BG SAMPLE SITE RIGHT RADIAL; BG TOTAL HEMOGLOBIN 8.8 g/dL (12.0-18.0); BG TOTAL RESPIRATORY RATE 17 b/min; BG VENT MODE VENT - AC
[2021-10-25] MEDS: DEXT 5%/0.45% NACL 1000ML 1,000 ML IV SCH (09:55)
[2021-10-25] MEDS: PANTOPRAZOLE SODIUM 40 MG/VIAL IV SCH (09:55)
[2021-10-25] MEDS: ASCORBIC ACID 500 MG TABLET PO SCH ×2 (09:55→16:20)
[2021-10-25] MEDS: BENZTROPINE MESYLATE 1MG TABLET PO SCH ×2 (09:55→21:00)
[2021-10-25] MEDS: LEVETIRACETAM 1,000 MG in SODIUM CHLORIDE 0.9% 100 ML IV SCH ×2 (09:55→22:57)
[2021-10-25] MEDS ORDERED: POTASSIUM CHLORIDE 20MEQ/PACKET PO SCH (13:00)
[2021-10-25] MEDS: LEVOFLOXACIN 750MG PREMIX 150 ML IV SCH (16:19)
[2021-10-25] MEDS: DOPAMINE 800MG PREMIX (DOUBLE) 250 ML IV PRN (16:20)
[2021-10-26] VITALS (91 sets, daily range): BP systolic 112–168; BP diastolic 54–150
[2021-10-26] MEDS: BLOOD SUGAR DIAGNOSTIC STRIP TEST SCH ×4 (00:31→17:10)
[2021-10-26] MEDS: IPRATROPIUM/ALBUTEROL 0.5-3(2.5)MG/3ML NEB HHN SCH ×5 (01:16→15:39)
[2021-10-26] MEDS: INSULIN LISPRO 100 UNITS/ML SUBCUT SCH ×4 (06:00→17:10)
[2021-10-26] MEDS: LACTULOSE 20G/30ML UDC PO SCH ×3 (06:00→21:17)
[2021-10-26 06:12] LABS: BASOPHILS % 0.2 % (0.0-2.0); EOSINOPHILS % 1.2 % (0.0-5.0); HEMATOCRIT. 23.5 % (36.0-48.0); HEMOGLOBIN. 7.8 g/dL (12.0-16.0); LYMPHOCYTES % 9.7 % (20.0-50.0); MEAN CORPUSCULAR VOLUME 89.9 fL (81.0-99.0); NEUTROPHILS % 85.9 % (40.0-76.0); RED BLOOD CELL COUNT 2.62 mill/uL (4.2-5.4); RED CELL DISTRIBUTION WIDTH 19.3 % (11.6-14.6)
[2021-10-26 06:23] LABS: CHLORIDE 117 mEq/L (98-107)
[2021-10-26] MEDS: DOCUSATE SODIUM 100MG CAPSULE PO SCH (08:31)
[2021-10-26] MEDS: MIDODRINE HCL 5MG TABLET PO SCH ×3 (09:00→18:14)
[2021-10-26] MEDS: ASCORBIC ACID 500 MG TABLET PO SCH ×2 (09:00→18:13)
[2021-10-26] MEDS: BENZTROPINE MESYLATE 1MG TABLET PO SCH ×2 (09:00→21:17)
[2021-10-26 09:06] LABS: MEAN PLATELET VOLUME 9.5 fl (7.4-10.4)
[2021-10-26 09:07] LABS: PLATELET 90 x1000/uL (130-400)
[2021-10-26 09:27] LABS: BG BASE EXCESS 0.3 mmol/L (-2.0-2.0); BG CARBOXYHEMOGLOBIN 0.7 % (0.5-1.5); BG DEOXYHEMOGLOBIN 5.8 % (0.0-5.0); BG FRACTION INSPIRED OXYGEN 21; BG HCO3 ACT 24.2 mmol/L (22.0-26.0); BG METHEMOGLOBIN 0.3 % (0.0-1.5); BG OXYGEN SATURATION 94.1 % (92.0-98.5); BG OXYHEMOGLOBIN 93.2 % (94.0-97.0); BG PCO2 35.4 mmHg (35.0-45.0); BG PH 7.452 (7.350-7.450); BG PO2 75.2 mmHg (75.0-100.0); BG SAMPLE SITE RIGHT RADIAL; BG TOTAL HEMOGLOBIN 7.9 g/dL (12.0-18.0); BG VENT MODE ROOM AIR
[2021-10-26] MEDS: LEVETIRACETAM 1,000 MG in SODIUM CHLORIDE 0.9% 100 ML IV SCH (09:47)
[2021-10-26] MEDS: PANTOPRAZOLE SODIUM 40 MG/VIAL IV SCH (09:47)
[2021-10-26] MEDS: METHYLPREDNISOLONE SOD SUCC 40 MG/ML VIAL IV SCH ×2 (11:13→18:14)
[2021-10-26] MEDS: LEVOFLOXACIN 750MG PREMIX 150 ML IV SCH (14:11)
[2021-10-26] MEDS: LEVETIRACETAM 1000MG PREMIX 100 ML IV SCH (21:18)
[2021-10-27] VITALS (87 sets, daily range): BP systolic 105–193; BP diastolic 56–141
[2021-10-27] MEDS: METHYLPREDNISOLONE SOD SUCC 40 MG/ML VIAL IV SCH ×3 (03:22→18:00)
[2021-10-27 05:59] LABS: CHLORIDE 117 mEq/L (98-107)
[2021-10-27] MEDS: BLOOD SUGAR DIAGNOSTIC STRIP TEST SCH ×5 (06:00→23:17)
[2021-10-27] MEDS: INSULIN LISPRO 100 UNITS/ML SUBCUT SCH ×5 (06:00→23:43)
[2021-10-27 06:04] LABS: MEAN CORPUSCULAR HEMOGLOBIN 30.8 pg (28.0-32.0); MEAN CORPUSCULAR VOLUME 90.7 fL (81.0-99.0); MEAN PLATELET VOLUME 10.3 fl (7.4-10.4); PLATELET 77 x1000/uL (130-400); RED BLOOD CELL COUNT 2.23 mill/uL (4.2-5.4); RED CELL DISTRIBUTION WIDTH 19.4 % (11.6-14.6)
[2021-10-27] MEDS: LACTULOSE 20G/30ML UDC PO SCH (06:18)
[2021-10-27 07:11] LABS: HEMOGLOBIN. 6.9 g/dL (12.0-16.0)
[2021-10-27 07:12] LABS: HEMATOCRIT. 20.2 % (36.0-48.0)
[2021-10-27] MEDS: IPRATROPIUM/ALBUTEROL 0.5-3(2.5)MG/3ML NEB HHN SCH ×4 (08:21→20:54)
[2021-10-27] MEDS: MIDODRINE HCL 5MG TABLET PO SCH (08:57)
[2021-10-27] MEDS: DOCUSATE SODIUM 100MG CAPSULE PO SCH (08:57)
[2021-10-27] MEDS: ASCORBIC ACID 500 MG TABLET PO SCH ×2 (08:58→18:00)
[2021-10-27] MEDS: LEVETIRACETAM 1000MG PREMIX 100 ML IV SCH ×2 (08:58→21:23)
[2021-10-27] MEDS: PANTOPRAZOLE SODIUM 40 MG/VIAL IV SCH (08:58)
[2021-10-27] MEDS: BENZTROPINE MESYLATE 1MG TABLET PO SCH ×2 (08:58→21:23)
[2021-10-27 10:15] LABS: NUCLEATED RED BLOOD CELLS 9 /100 WBC
[2021-10-27 10:16] LABS: PLATELET ESTIMATE DECREASED
[2021-10-27] MEDS: LEVOFLOXACIN 750MG PREMIX 150 ML IV SCH (15:58)
[2021-10-28] VITALS (54 sets, daily range): BP systolic 117–184; BP diastolic 22–126
[2021-10-28] MEDS: IPRATROPIUM/ALBUTEROL 0.5-3(2.5)MG/3ML NEB HHN SCH ×6 (01:24→20:28)
[2021-10-28] MEDS: METHYLPREDNISOLONE SOD SUCC 40 MG/ML VIAL IV SCH ×3 (02:23→23:39)
[2021-10-28] MEDS: BLOOD SUGAR DIAGNOSTIC STRIP TEST SCH ×2 (05:22→23:39)
[2021-10-28] MEDS: INSULIN LISPRO 100 UNITS/ML SUBCUT SCH ×2 (05:23→23:39)
[2021-10-28 06:40] LABS: HEMATOCRIT. 30.7 % (36.0-48.0); HEMOGLOBIN. 10.3 g/dL (12.0-16.0); MEAN CORPUSCULAR HEMOGLOBIN 30.1 pg (28.0-32.0); MEAN PLATELET VOLUME 10.2 fl (7.4-10.4); PLATELET 125 x1000/uL (130-400); RED BLOOD CELL COUNT 3.41 mill/uL (4.2-5.4); RED CELL DISTRIBUTION WIDTH 17.7 % (11.6-14.6)
[2021-10-28 06:46] LABS: CHLORIDE 113 mEq/L (98-107)
[2021-10-28] MEDS: BENZTROPINE MESYLATE 1MG TABLET PO SCH ×2 (09:31→21:28)
[2021-10-28] MEDS: DOCUSATE SODIUM 100MG CAPSULE PO SCH (09:31)
[2021-10-28] MEDS: ASCORBIC ACID 500 MG TABLET PO SCH ×2 (09:31→17:56)
[2021-10-28] MEDS: PANTOPRAZOLE SODIUM 40 MG/VIAL IV SCH (09:31)
[2021-10-28] MEDS: LEVETIRACETAM 1000MG PREMIX 100 ML IV SCH (09:45)
[2021-10-28] MEDS: LEVOFLOXACIN 500MG TABLET PO SCH (11:04)
[2021-10-28 12:31] LABS: NUCLEATED RED BLOOD CELLS 5 /100 WBC; PLATELET ESTIMATE SLIGHTLY DECREASED
[2021-10-28] MEDS ORDERED: LACTULOSE 20G/30ML UDC PO NR (17:00)
[2021-10-28] MEDS ORDERED: POLYETHYLENE GLYCOL 3350 (17GM) 1 DOSE PACK PO NR (17:00)
[2021-10-28] MEDS: DOCUSATE SODIUM SUGAR FREE 100MG/10ML UDC NG SCH (17:56)
[2021-10-28] MEDS: LEVETIRACETAM 500MG/5ML CUP PO SCH (21:28)
[2021-10-28] MEDS ORDERED: DEXTROSE 50% WATER 50ML SYRINGE IV PRN (23:00)
[2021-10-29] VITALS (30 sets, daily range): BP systolic 121–179; BP diastolic 57–100
[2021-10-29] MEDS: IPRATROPIUM/ALBUTEROL 0.5-3(2.5)MG/3ML NEB HHN SCH ×5 (00:15→20:59)
[2021-10-29] MEDS: BLOOD SUGAR DIAGNOSTIC STRIP TEST SCH ×3 (05:17→23:33)
[2021-10-29] MEDS: INSULIN LISPRO 100 UNITS/ML SUBCUT SCH ×3 (05:17→23:33)
[2021-10-29] MEDS ORDERED: CLONIDINE 0.1MG TABLET PO PRN (05:30)
[2021-10-29 06:06] LABS: HEMATOCRIT. 29.7 % (36.0-48.0); HEMOGLOBIN. 9.9 g/dL (12.0-16.0); MEAN CORPUSCULAR HEMOGLOBIN 30.1 pg (28.0-32.0); MEAN CORPUSCULAR VOLUME 90.3 fL (81.0-99.0); MEAN PLATELET VOLUME 9.9 fl (7.4-10.4); PLATELET 157 x1000/uL (130-400); RED BLOOD CELL COUNT 3.28 mill/uL (4.2-5.4); RED CELL DISTRIBUTION WIDTH 18.2 % (11.6-14.6)
[2021-10-29 06:16] LABS: CHLORIDE 110 mEq/L (98-107)
[2021-10-29 06:27] LABS: TOTAL IRON BINDING CAPACITY 224 ug/dL (250-450)
[2021-10-29 06:28] LABS: INR 1.1; PROTHROMBIN TIME 11.4 sec (9.6-11.0)
[2021-10-29 06:42] LABS: FOLIC ACID (FOLATE) SERUM 6.1 ng/mL (>5.38)
[2021-10-29] MEDS ORDERED: INSULIN LISPRO 100 UNITS/ML SUBCUT SCH (08:20)
[2021-10-29 08:36] LABS: PLATELET ESTIMATE NORMAL
[2021-10-29] MEDS: BENZTROPINE MESYLATE 1MG TABLET PO SCH ×2 (09:07→20:37)
[2021-10-29] MEDS: ASCORBIC ACID 500 MG TABLET PO SCH (09:07)
[2021-10-29] MEDS: LEVETIRACETAM 500MG/5ML CUP PO SCH ×2 (09:07→20:37)
[2021-10-29] MEDS: DOCUSATE SODIUM SUGAR FREE 100MG/10ML UDC NG SCH (09:07)
[2021-10-29] MEDS: DOCUSATE SODIUM 100MG CAPSULE PO SCH (09:07)
[2021-10-29] MEDS: PANTOPRAZOLE SODIUM 40 MG/VIAL IV SCH (09:07)
[2021-10-29] MEDS ORDERED: LEVO750T46 MT (11:01)
[2021-10-29] MEDS: LEVOFLOXACIN 500MG TABLET PO SCH (13:24)
[2021-10-29] MEDS: SORBITOL 70% SOLN 30ML PO SCH (13:24)
[2021-10-29] MEDS: METHYLPREDNISOLONE SOD SUCC 40 MG/ML VIAL IV SCH ×2 (13:25→23:37)
[2021-10-29] MEDS ORDERED: DOCUSATE SODIUM 250MG CAPSULE PO SCH (17:00)
[2021-10-29] MEDS ORDERED: SENNOSIDES/DOCUSATE SOD 8.6/50MG TABLET PO SCH (21:00)
[2021-10-30] VITALS (8 sets, daily range): BP systolic 134–155; BP diastolic 33–90
[2021-10-30] MEDS: IPRATROPIUM/ALBUTEROL 0.5-3(2.5)MG/3ML NEB HHN SCH ×5 (01:21→16:00)
[2021-10-30] MEDS: BLOOD SUGAR DIAGNOSTIC STRIP TEST SCH (05:19)
[2021-10-30] MEDS: INSULIN LISPRO 100 UNITS/ML SUBCUT SCH (05:24)
[2021-10-30] MEDS: SORBITOL 70% SOLN 30ML PO SCH (08:21)
[2021-10-30] MEDS: PANTOPRAZOLE SODIUM 40 MG/VIAL IV SCH (08:22)
[2021-10-30] MEDS: ASCORBIC ACID 500 MG TABLET PO SCH (08:23)
[2021-10-30] MEDS: BENZTROPINE MESYLATE 1MG TABLET PO SCH (08:23)
[2021-10-30] MEDS: LEVETIRACETAM 500MG/5ML CUP PO SCH (08:23)
== END 2021-10-30 11:30 | disposition home or self-care (01) | DRG 720 ==
LOC: ER 15:50 → EDBEDREQSVC 21:41 → EDBEDREQTM 21:41 → EDBEDREQ 21:41 → MICUSO 21:59 → 5EST 10-20 11:27 → CVICU 10-21 17:26 → 5EST 10-29 11:32
PROVIDERS: ADMIT Internal Medicine; ATTEND Internal Medicine
PROC: 0BH17EZ Insertion of Endotracheal Airway into Trachea, Via Natural or Artificial Opening (ICD-10-PCS; principal; 2021-10-22)
PROC: 5A1945Z Respiratory Ventilation, 24-96 Consecutive Hours (ICD-10-PCS; 2021-10-22)
PROC: 02HV33Z Insertion of Infusion Device into Superior Vena Cava, Percutaneous Approach (ICD-10-PCS; 2021-10-22)
PROC: B548ZZA Ultrasonography of Superior Vena Cava, Guidance (ICD-10-PCS; 2021-10-22)
PROC: 30233N1 Transfusion of Nonautologous Red Blood Cells into Peripheral Vein, Percutaneous Approach (ICD-10-PCS; 2021-10-27)
DX: A41.52 Sepsis due to Pseudomonas (principal); N17.0 Acute kidney failure with tubular necrosis; J96.01 Acute respiratory failure with hypoxia; J69.0 Pneumonitis due to inhalation of food and vomit; R65.21 Severe sepsis with septic shock; G93.41 Metabolic encephalopathy; D61.818 Other pancytopenia; J15.1 Pneumonia due to Pseudomonas; E44.0 Moderate protein-calorie malnutrition; I44.1 Atrioventricular block, second degree; E87.8 Other disorders of electrolyte and fluid balance, not elsewhere classified; F84.0 Autistic disorder; G40.909 Epilepsy, unspecified, not intractable, without status epilepticus; I10 Essential (primary) hypertension; K56.41 Fecal impaction; R22.0 Localized swelling, mass and lump, head; R74.01 Elevation of levels of liver transaminase levels; J15.6 Pneumonia due to other Gram-negative bacteria; F17.200 Nicotine dependence, unspecified, uncomplicated; Z20.822 Contact with and (suspected) exposure to COVID-19; Z74.01 Bed confinement status; Z86.73 Personal history of transient ischemic attack (TIA), and cerebral infarction without residual deficits; Z79.899 Other long term (current) drug therapy; Z78.1 Physical restraint status
CPT/HCPCS: 31500; 36415; 36600; 71045; 74176; 76937; 80048; 80053; 80076; 81003; 82140; 82270; 82375; 82607; 82728; 82746; 82805; 82962; 83540; 83550; 83605; 83735; 83880; 84132; 84145; 84484; 84702; 85025; 85044; 86850; 86900; 86920; 87070; 87077; 87186; 87426; 92610; 93005; 93306; 94003; 94640; 97162; 99285; A6261; C1725; C9113; J0461; J0692; J0696; J1265; J1815; J1953; J1956; J2405; J2543; J2920; J3490; J7042; J7050; J7060; P9016; A4315

== ENCOUNTER 2021-12-08 04:44 | Inpatient (IN) | payer OTHER ==
[~2021-12-08] VITALS: Ht 152.4 cm; Wt 62.1 kg
[~2021-12-08 04:44] MED LIST changes: +LEVO750T46 MT
[2021-12-08 05:45] LABS: HEMATOCRIT. 21.3 % (36.0-48.0); HEMOGLOBIN. 7.3 g/dL (12.0-16.0); MEAN CORPUSCULAR HEMOGLOBIN 30.5 pg (28.0-32.0); MEAN CORPUSCULAR VOLUME 88.7 fL (81.0-99.0); MEAN PLATELET VOLUME 9.9 fl (7.4-10.4); PLATELET 52 x1000/uL (130-400); RED CELL DISTRIBUTION WIDTH 19.1 % (11.6-14.6)
[2021-12-08 05:50] LABS: CHLORIDE 116 mEq/L (98-107)
[2021-12-08 06:20] LABS: BG BASE EXCESS 1.3 mmol/L (-2.0-2.0); BG CARBOXYHEMOGLOBIN 0.2 % (0.5-1.5); BG DEOXYHEMOGLOBIN 1.2 % (0.0-5.0); BG FRACTION INSPIRED OXYGEN 100; BG METHEMOGLOBIN 0.2 % (0.0-1.5); BG OXYGEN SATURATION 98.8 % (92.0-98.5); BG OXYHEMOGLOBIN 98.4 % (94.0-97.0); BG PCO2 47.8 mmHg (35.0-45.0); BG PH 7.369 (7.350-7.450); BG PO2 265.7 mmHg (75.0-100.0); BG SAMPLE SITE LEFT BRACHIAL; BG TOTAL HEMOGLOBIN 9.9 g/dL (12.0-18.0); BG VENT MODE MASK - NRB
[2021-12-08 07:04] LABS: NUCLEATED RED BLOOD CELLS 1 /100 WBC; PLATELET ESTIMATE DECREASED
[2021-12-08 07:43] LABS: CLARITY URINE CLEAR (CLEAR); COLOR URINE YELLOW (YELLOW); KETONES URINE TRACE (NEGATIVE); LEUKOCYTE ESTERASE URINE NEGATIVE (NEGATIVE); NITRITE URINE NEGATIVE (NEGATIVE); OCCULT BLOOD URINE NEGATIVE (NEGATIVE); PH URINE 5.5 (4.5-8.0); PROTEIN URINE 1+ (NEGATIVE); SPECIFIC GRAVITY URINE 1.025 (1.005-1.030); UROBILINOGEN URINE 0.2 E.U./dL (0.2-1.0)
[2021-12-08] MEDS ORDERED: AZITHROMYCIN 500MG/250ML 250 ML IV ONE (08:00)
[2021-12-08] MEDS ORDERED: CEFTRIAXONE 1 G PREMIX 50 ML IV ONE (08:00)
[2021-12-08] MEDS ORDERED: SODIUM CHLORIDE 0.9% 1000ML BAG (SEPSIS BOLUS) IV ONE (09:30)
[2021-12-08] MEDS ORDERED: NOREPINEPHRINE 8MG/250ML PMX 250 ML IV STA (10:31)
[2021-12-08] MEDS ORDERED: LIDOCAINE HCL 1% 10 MG/ML 10ML VIAL ONE (10:33)
[2021-12-08 13:53] LABS: BG BASE EXCESS -0.4 mmol/L (-2.0-2.0); BG CARBOXYHEMOGLOBIN 0.3 % (0.5-1.5); BG DEOXYHEMOGLOBIN 12.8 % (0.0-5.0); BG HCO3 ACT 24.6 mmol/L (22.0-26.0); BG METHEMOGLOBIN 0.4 % (0.0-1.5); BG OXYGEN SATURATION 87.1 % (92.0-98.5); BG OXYHEMOGLOBIN 86.5 % (94.0-97.0); BG PCO2 41.8 mmHg (35.0-45.0); BG PH 7.388 (7.350-7.450); BG PO2 58.5 mmHg (75.0-100.0); BG SAMPLE SITE LEFT RADIAL; BG VENT MODE MASK - NRB
[2021-12-08] MEDS ORDERED: PIPERACILLIN/TAZOBACTAM 3.375GM/50ML PREMIX IV SCH (14:45)
[2021-12-08] MEDS ORDERED: VANCOMYCIN 1G PREMIX 200 ML IV NR (16:00)
[2021-12-08] MEDS ORDERED: PHENYLEPHRINE 50 MG in DEXT 5% WATER 245 ML IV PRN ×4 (16:00)
[2021-12-08] MEDS: PIPERACILLIN/TAZ 3.375G PREMIX 50 ML IV SCH ×2 (16:34→22:22)
[2021-12-08] MEDS ORDERED: ACETAMINOPHEN 325MG TABLET PO PRN (23:15)
[2021-12-08 23:38] VITALS: BP 91/56
[2021-12-08 23:45] VITALS: BP 78/41
[2021-12-08 23:50] VITALS: BP 99/78
[2021-12-08 23:52] VITALS: BP 79/54
[2021-12-09] VITALS (107 sets, daily range): BP systolic 43–192; BP diastolic 18–154
[2021-12-09] MEDS: IPRATROPIUM/ALBUTEROL 0.5-3(2.5)MG/3ML NEB HHN SCH ×6 (00:19→20:16)
[2021-12-09] MEDS: NOREPINEPHRINE 8 MG in DEXTROSE 5% WATER 250 ML IV PRN ×2 (00:44→17:38)
[2021-12-09 01:39] LABS: MEAN CORPUSCULAR HEMOGLOBIN 29.7 pg (28.0-32.0); MEAN CORPUSCULAR VOLUME 89.8 fL (81.0-99.0); MEAN PLATELET VOLUME 9.5 fl (7.4-10.4); PLATELET 76 x1000/uL (130-400); RED BLOOD CELL COUNT 2.18 mill/uL (4.2-5.4); RED CELL DISTRIBUTION WIDTH 19.9 % (11.6-14.6)
[2021-12-09 01:47] LABS: HEMATOCRIT. 19.5 % (36.0-48.0); HEMOGLOBIN. 6.5 g/dL (12.0-16.0)
[2021-12-09 04:36] LABS: PLATELET ESTIMATE DECREASED
[2021-12-09] MEDS: PHENYLEPHRINE 100 MG in DEXT 5% WATER 240 ML IV PRN ×2 (05:16→12:23)
[2021-12-09] MEDS: DEXT 5%/0.9% NACL 1,000 ML IV SCH ×4 (06:00→16:40)
[2021-12-09] MEDS ORDERED: VANCOMYCIN 750 MG in DEXT 5% WATER 250 ML IV SCH (06:00)
[2021-12-09] MEDS: HYDROCORTISONE SOD SUCCINATE 100 MG/2 ML VIAL IV SCH ×3 (06:24→21:31)
[2021-12-09] MEDS: PIPERACILLIN/TAZOBACTAM 3.375G in DEXT 5% WATER 50ML IV SCH ×3 (07:20→23:32)
[2021-12-09] MEDS ORDERED: AZITHROMYCIN 500 MG in DEXT 5% WATER 250 ML IV SCH (09:00)
[2021-12-09] MEDS: AZITHROMYCIN 500 MG in DEXT 5% WATER 250 ML IV SCH (09:00)
[2021-12-09 10:20] LABS: BG BASE EXCESS -4.7 mmol/L (-2.0-2.0); BG CARBOXYHEMOGLOBIN 0.3 % (0.5-1.5); BG DEOXYHEMOGLOBIN 0.5 % (0.0-5.0); BG FRACTION INSPIRED OXYGEN 85; BG HCO3 ACT 19.7 mmol/L (22.0-26.0); BG METHEMOGLOBIN 0.3 % (0.0-1.5); BG OXYGEN SATURATION 99.5 % (92.0-98.5); BG OXYHEMOGLOBIN 98.9 % (94.0-97.0); BG PCO2 33.3 mmHg (35.0-45.0); BG PH 7.389 (7.350-7.450); BG PO2 224.8 mmHg (75.0-100.0); BG SAMPLE SITE RIGHT RADIAL; BG TOTAL HEMOGLOBIN 8.2 g/dL (12.0-18.0); BG TOTAL RESPIRATORY RATE 26 b/min; BG VENT MODE MASK - BIPAP
[2021-12-09 10:58] LABS: HEMATOCRIT. 24.2 % (36.0-48.0); HEMOGLOBIN. 8.3 g/dL (12.0-16.0); MEAN CORPUSCULAR VOLUME 87.9 fL (81.0-99.0); MEAN PLATELET VOLUME 9.3 fl (7.4-10.4); PLATELET 76 x1000/uL (130-400); RED BLOOD CELL COUNT 2.75 mill/uL (4.2-5.4); RED CELL DISTRIBUTION WIDTH 19.4 % (11.6-14.6)
[2021-12-09] MEDS: BLOOD SUGAR DIAGNOSTIC STRIP TEST SCH ×4 (11:00→23:32)
[2021-12-09 11:07] LABS: CHLORIDE 116 mEq/L (98-107)
[2021-12-09 11:19] LABS: PLATELET ESTIMATE DECREASED
[2021-12-09] MEDS: INSULIN LISPRO 100 UNITS/ML SUBCUT SCH ×4 (12:26→23:37)
[2021-12-09] MEDS ORDERED: PHENYTOIN SODIUM EXTENDED 100MG CAPSULE PO SCH (15:00)
[2021-12-09] MEDS: PANTOPRAZOLE SODIUM 40 MG/VIAL IV SCH (16:39)
[2021-12-09] MEDS: PHENYTOIN 100 MG/4 ML UDC NG SCH (21:31)
[2021-12-09] MEDS: LEVETIRACETAM 500MG/5ML CUP PO SCH (21:33)
[2021-12-09] MEDS: VANCOMYCIN 750 MG in DEXT 5% WATER 250 ML IV SCH (21:33)
[2021-12-09] MEDS ORDERED: DOPAMINE 400MG/250ML PREMIX 250 ML IV PRN (23:15)
[2021-12-10] VITALS (103 sets, daily range): BP systolic 79–180; BP diastolic 42–125
[2021-12-10] MEDS: IPRATROPIUM/ALBUTEROL 0.5-3(2.5)MG/3ML NEB HHN SCH ×6 (00:18→20:55)
[2021-12-10] MEDS: INSULIN LISPRO 100 UNITS/ML SUBCUT SCH ×5 (04:00→22:30)
[2021-12-10] MEDS: BLOOD SUGAR DIAGNOSTIC STRIP TEST SCH ×5 (04:00→22:30)
[2021-12-10] MEDS: HYDROCORTISONE SOD SUCCINATE 100 MG/2 ML VIAL IV SCH ×2 (05:32→13:57)
[2021-12-10] MEDS: PIPERACILLIN/TAZOBACTAM 3.375G in DEXT 5% WATER 50ML IV SCH ×3 (05:32→22:00)
[2021-12-10] MEDS: PHENYTOIN 100 MG/4 ML UDC NG SCH ×2 (05:38→13:57)
[2021-12-10 06:01] LABS: CHLORIDE 118 mEq/L (98-107)
[2021-12-10 07:11] LABS: HIV SCREEN 4G Non Reactive (Non Reactive)
[2021-12-10] MEDS: DEXT 5%/0.9% NACL 1,000 ML IV SCH (07:13)
[2021-12-10] MEDS: LEVETIRACETAM 500MG/5ML CUP PO SCH ×2 (09:38→21:00)
[2021-12-10] MEDS: PANTOPRAZOLE SODIUM 40 MG/VIAL IV SCH (09:38)
[2021-12-10] MEDS: AZITHROMYCIN 500 MG in DEXT 5% WATER 250 ML IV SCH (09:39)
[2021-12-10] MEDS: VANCOMYCIN 750 MG in DEXT 5% WATER 250 ML IV SCH (09:39)
[2021-12-10 13:55] LABS: BASOPHILS % 0.2 % (0.0-2.0); EOSINOPHILS % 0.1 % (0.0-5.0); LYMPHOCYTES % 10.2 % (20.0-50.0); MEAN CORPUSCULAR HEMOGLOBIN 29.2 pg (28.0-32.0); MEAN CORPUSCULAR VOLUME 85.9 fL (81.0-99.0); MEAN PLATELET VOLUME 8.3 fl (7.4-10.4); MONOCYTES % 3.3 % (2.0-8.0); NEUTROPHILS % 86.2 % (40.0-76.0); RED BLOOD CELL COUNT 2.29 mill/uL (4.2-5.4); RED CELL DISTRIBUTION WIDTH 19.5 % (11.6-14.6)
[2021-12-10 14:00] LABS: CHLORIDE 120 mEq/L (98-107)
[2021-12-10 14:05] LABS: HEMATOCRIT. 19.7 % (36.0-48.0); HEMOGLOBIN. 6.7 g/dL (12.0-16.0); PLATELET 46 x1000/uL (130-400)
[2021-12-10] MEDS ORDERED: POTASSIUM CHLORIDE 20MEQ/PACKET PO NR (16:15)
[2021-12-10] MEDS ORDERED: DEXT 5%/0.45% NACL KCL 20MEQ/L 1,000 ML IV SCH (17:00)
[2021-12-10 17:03] LABS: TOTAL IRON BINDING CAPACITY 156 ug/dL (250-450)
[2021-12-10] MEDS: BISACODYL 10MG SUPP PR SCH (17:15)
[2021-12-10] MEDS ORDERED: LACTULOSE 20G/30ML UDC PO PRN (17:15)
[2021-12-10 17:23] LABS: FOLIC ACID (FOLATE) SERUM 4.9 ng/mL (>5.38)
[2021-12-10] MEDS ORDERED: DEXT 5% WATER + KCL 40MEQ/L 1,000 ML IV SCH (18:30)
[2021-12-10] MEDS: POTASSIUM CHLORIDE INJ 40 MEQ in DEXTROSE 5% WATER 1,000 ML IV SCH (19:01)
[2021-12-10 20:41] LABS: HEMATOCRIT 27.4 % (36.0-48.0); HEMOGLOBIN 9.3 g/dL (12.0-16.0)
[2021-12-10 20:55] LABS: INR 1.1
[2021-12-10] MEDS: SENNOSIDES/DOCUSATE SOD 8.6/50MG TABLET PO SCH (21:00)
[2021-12-10] MEDS ORDERED: POTASSIUM CHLORIDE 20MEQ TABLET SR PO NR (21:00)
[2021-12-10 21:10] LABS: FIBRINOGEN > 850 mg/dL (200-400)
[2021-12-10 21:20] LABS: HEPATITIS B SURFACE ANTIGEN NEGATIVE
[2021-12-11] VITALS (95 sets, daily range): BP systolic 85–173; BP diastolic 26–99
[2021-12-11] MEDS: IPRATROPIUM/ALBUTEROL 0.5-3(2.5)MG/3ML NEB HHN SCH ×6 (00:32→20:51)
[2021-12-11 01:50] LABS: HEMATOCRIT 26.7 % (36.0-48.0); HEMOGLOBIN 9.3 g/dL (12.0-16.0)
[2021-12-11] MEDS: BLOOD SUGAR DIAGNOSTIC STRIP TEST SCH ×6 (02:32→23:35)
[2021-12-11] MEDS: INSULIN LISPRO 100 UNITS/ML SUBCUT SCH ×6 (02:33→23:00)
[2021-12-11 06:00] LABS: BASOPHILS % 0.2 % (0.0-2.0); HEMATOCRIT. 25.4 % (36.0-48.0); HEMOGLOBIN. 8.7 g/dL (12.0-16.0); MEAN CORPUSCULAR HEMOGLOBIN 29.6 pg (28.0-32.0); MEAN CORPUSCULAR VOLUME 86.2 fL (81.0-99.0); MEAN PLATELET VOLUME 9.2 fl (7.4-10.4); MONOCYTES % 2.9 % (2.0-8.0); NEUTROPHILS % 86.9 % (40.0-76.0); RED BLOOD CELL COUNT 2.94 mill/uL (4.2-5.4); RED CELL DISTRIBUTION WIDTH 17.6 % (11.6-14.6)
[2021-12-11] MEDS: PHENYTOIN 100 MG/4 ML UDC NG SCH ×3 (06:00→20:31)
[2021-12-11 06:06] LABS: INR 1.1; PROTHROMBIN TIME 11.7 sec (9.6-11.0)
[2021-12-11 06:08] LABS: CHLORIDE 119 mEq/L (98-107)
[2021-12-11 06:16] LABS: PHOSPHORUS 2.6 mg/dL (2.5-4.9)
[2021-12-11] MEDS: VANCOMYCIN 750 MG in DEXT 5% WATER 250 ML IV SCH (06:47)
[2021-12-11 06:49] LABS: PLATELET 38 x1000/uL (130-400)
[2021-12-11] MEDS: PIPERACILLIN/TAZOBACTAM 3.375G in DEXT 5% WATER 50ML IV SCH ×3 (08:10→22:00)
[2021-12-11] MEDS: PANTOPRAZOLE SODIUM 40 MG/VIAL IV SCH (08:48)
[2021-12-11] MEDS: AZITHROMYCIN 500 MG in DEXT 5% WATER 250 ML IV SCH (08:48)
[2021-12-11] MEDS: LEVETIRACETAM 500MG/5ML CUP PO SCH ×2 (09:00→20:31)
[2021-12-11] MEDS: POLYETHYLENE GLYCOL 3350 (17GM) 1 DOSE PACK PO SCH (09:00)
[2021-12-11] MEDS: BISACODYL 10MG SUPP PR SCH (09:00)
[2021-12-11] MEDS ORDERED: POTASSIUM CHLORIDE 20MEQ/PACKET PO NR (10:00)
[2021-12-11 12:41] LABS: HEMATOCRIT 27.4 % (36.0-48.0); HEMOGLOBIN 9.3 g/dL (12.0-16.0)
[2021-12-11] MEDS: DEXTROSE 50% WATER 50ML SYRINGE IV PRN ×2 (14:33→18:28)
[2021-12-11] MEDS: POTASSIUM CHLORIDE INJ 40 MEQ in DEXTROSE 5% WATER 1,000 ML IV SCH (16:28)
[2021-12-11] MEDS: BUDESONIDE 0.5MG/2ML NEB HHN SCH (17:13)
[2021-12-11] MEDS: OLANZAPINE 10MG TABLET PO SCH (18:23)
[2021-12-11] MEDS: MIRTAZAPINE 15MG TABLET PO SCH (18:23)
[2021-12-11] MEDS: DEXT 10% WATER 1,000 ML IV SCH (18:49)
[2021-12-11 19:00] LABS: HEMATOCRIT 26.6 % (36.0-48.0); HEMOGLOBIN 9.2 g/dL (12.0-16.0)
[2021-12-11] MEDS: SENNOSIDES/DOCUSATE SOD 8.6/50MG TABLET PO SCH (20:32)
[2021-12-12] VITALS (17 sets, daily range): BP systolic 84–169; BP diastolic 41–102
[2021-12-12 00:40] LABS: HEMOGLOBIN 9.2 g/dL (12.0-16.0)
[2021-12-12] MEDS: ACETYLCYSTEINE 100MG/ML 10% VIAL 4ML INH SCH ×4 (00:40→21:13)
[2021-12-12] MEDS: IPRATROPIUM/ALBUTEROL 0.5-3(2.5)MG/3ML NEB HHN SCH ×6 (00:41→20:42)
[2021-12-12] MEDS: VANCOMYCIN 750 MG in DEXT 5% WATER 250 ML IV SCH ×2 (00:58→18:36)
[2021-12-12] MEDS: BLOOD SUGAR DIAGNOSTIC STRIP TEST SCH ×5 (03:00→20:35)
[2021-12-12] MEDS: INSULIN LISPRO 100 UNITS/ML SUBCUT SCH ×5 (03:00→20:05)
[2021-12-12 05:21] LABS: BASOPHILS % 0.1 % (0.0-2.0); EOSINOPHILS % 0.1 % (0.0-5.0); HEMATOCRIT. 26.5 % (36.0-48.0); HEMOGLOBIN. 9.2 g/dL (12.0-16.0); LYMPHOCYTES % 9.7 % (20.0-50.0); MEAN CORPUSCULAR HEMOGLOBIN 29.7 pg (28.0-32.0); MEAN CORPUSCULAR VOLUME 85.7 fL (81.0-99.0); MEAN PLATELET VOLUME 8.5 fl (7.4-10.4); MONOCYTES % 2.9 % (2.0-8.0); NEUTROPHILS % 87.2 % (40.0-76.0); RED BLOOD CELL COUNT 3.09 mill/uL (4.2-5.4); RED CELL DISTRIBUTION WIDTH 17.8 % (11.6-14.6)
[2021-12-12 05:33] LABS: CHLORIDE 117 mEq/L (98-107)
[2021-12-12] MEDS: PHENYTOIN 100 MG/4 ML UDC NG SCH ×3 (05:40→21:13)
[2021-12-12] MEDS: PIPERACILLIN/TAZOBACTAM 3.375G in DEXT 5% WATER 50ML IV SCH ×3 (05:41→21:13)
[2021-12-12 06:28] LABS: PLATELET 39 x1000/uL (130-400)
[2021-12-12] MEDS: AZITHROMYCIN 500 MG in DEXT 5% WATER 250 ML IV SCH (08:30)
[2021-12-12] MEDS: BISACODYL 10MG SUPP PR SCH (08:30)
[2021-12-12] MEDS: LEVETIRACETAM 500MG/5ML CUP PO SCH ×2 (08:30→21:13)
[2021-12-12] MEDS: POLYETHYLENE GLYCOL 3350 (17GM) 1 DOSE PACK PO SCH (08:30)
[2021-12-12] MEDS: OLANZAPINE 10MG TABLET PO SCH ×2 (08:30→16:16)
[2021-12-12] MEDS: PANTOPRAZOLE SODIUM 40 MG/VIAL IV SCH (08:30)
[2021-12-12] MEDS: BUDESONIDE 0.5MG/2ML NEB HHN SCH ×2 (08:55→20:42)
[2021-12-12] MEDS: DEXT 10% WATER 1,000 ML IV SCH (11:46)
[2021-12-12] MEDS: MIRTAZAPINE 15MG TABLET PO SCH (16:16)
[2021-12-12] MEDS: ONDANSETRON HCL 4MG/2ML INJ IV PRN (20:03)
[2021-12-12] MEDS: SENNOSIDES/DOCUSATE SOD 8.6/50MG TABLET PO SCH (21:13)
[2021-12-12] MEDS ORDERED: OLANZAPINE 10 MG/VIAL IM NR (22:49)
[2021-12-13] VITALS (12 sets, daily range): BP systolic 109–144; BP diastolic 47–76
[2021-12-13] MEDS: BLOOD SUGAR DIAGNOSTIC STRIP TEST SCH ×6 (00:25→20:00)
[2021-12-13] MEDS: DEXT 10% WATER 1,000 ML IV SCH ×2 (00:26→16:06)
[2021-12-13] MEDS: INSULIN LISPRO 100 UNITS/ML SUBCUT SCH ×6 (04:00→20:00)
[2021-12-13] MEDS: ONDANSETRON HCL 4MG/2ML INJ IV PRN ×2 (04:12→21:38)
[2021-12-13] MEDS: IPRATROPIUM/ALBUTEROL 0.5-3(2.5)MG/3ML NEB HHN SCH ×5 (04:33→20:45)
[2021-12-13] MEDS: PHENYTOIN 100 MG/4 ML UDC NG SCH ×3 (05:04→21:38)
[2021-12-13] MEDS: PIPERACILLIN/TAZOBACTAM 3.375G in DEXT 5% WATER 50ML IV SCH ×3 (05:04→21:39)
[2021-12-13] MEDS: ACETYLCYSTEINE 100MG/ML 10% VIAL 4ML INH SCH ×3 (05:04→15:27)
[2021-12-13 06:31] LABS: BASOPHILS % 0.3 % (0.0-2.0); EOSINOPHILS % 0.1 % (0.0-5.0); LYMPHOCYTES % 11.2 % (20.0-50.0); MEAN CORPUSCULAR HEMOGLOBIN 29.7 pg (28.0-32.0); MEAN CORPUSCULAR VOLUME 86.1 fL (81.0-99.0); MEAN PLATELET VOLUME 9.1 fl (7.4-10.4); MONOCYTES % 5.3 % (2.0-8.0); NEUTROPHILS % 83.1 % (40.0-76.0); PLATELET 61 x1000/uL (130-400); RED BLOOD CELL COUNT 3.02 mill/uL (4.2-5.4); RED CELL DISTRIBUTION WIDTH 18.3 % (11.6-14.6)
[2021-12-13] MEDS: BUDESONIDE 0.5MG/2ML NEB HHN SCH ×2 (08:14→20:46)
[2021-12-13] MEDS: OLANZAPINE 10MG TABLET PO SCH ×2 (08:26→16:00)
[2021-12-13] MEDS: POLYETHYLENE GLYCOL 3350 (17GM) 1 DOSE PACK PO SCH (08:26)
[2021-12-13] MEDS: LEVETIRACETAM 500MG/5ML CUP PO SCH ×2 (08:26→21:38)
[2021-12-13] MEDS: PANTOPRAZOLE SODIUM 40 MG/VIAL IV SCH (08:26)
[2021-12-13] MEDS: BISACODYL 10MG SUPP PR SCH (08:26)
[2021-12-13] MEDS ORDERED: QUETIAPINE FUMARATE 50MG TABLET PO SCH (12:00)
[2021-12-13] MEDS ORDERED: BENZTROPINE MESYLATE 1MG TABLET PO SCH (12:30)
[2021-12-13] MEDS: QUETIAPINE FUMARATE 25MG TABLET PO PRN ×2 (13:17→21:38)
[2021-12-13] MEDS: MIRTAZAPINE 15MG TABLET PO SCH (16:00)
[2021-12-13 20:17] LABS: HEMATOCRIT 26.6 % (36.0-48.0); HEMOGLOBIN 9.1 g/dL (12.0-16.0)
[2021-12-13] MEDS: SENNOSIDES/DOCUSATE SOD 8.6/50MG TABLET PO SCH (21:38)
[2021-12-13] MEDS: BENZTROPINE MESYLATE 0.5MG TABLET PO SCH (21:38)
[2021-12-14] VITALS (12 sets, daily range): BP systolic 105–147; BP diastolic 55–86
[2021-12-14] MEDS: IPRATROPIUM/ALBUTEROL 0.5-3(2.5)MG/3ML NEB HHN SCH ×5 (00:38→21:11)
[2021-12-14] MEDS: ACETYLCYSTEINE 100MG/ML 10% VIAL 4ML INH SCH ×2 (00:40→17:48)
[2021-12-14 01:38] LABS: HEMATOCRIT 25.5 % (36.0-48.0); HEMOGLOBIN 8.7 g/dL (12.0-16.0)
[2021-12-14] MEDS: ONDANSETRON HCL 4MG/2ML INJ IV PRN (03:07)
[2021-12-14] MEDS: BLOOD SUGAR DIAGNOSTIC STRIP TEST SCH ×7 (03:50→23:17)
[2021-12-14] MEDS: INSULIN LISPRO 100 UNITS/ML SUBCUT SCH ×7 (03:50→23:17)
[2021-12-14] MEDS: PHENYTOIN 100 MG/4 ML UDC NG SCH ×3 (05:44→21:28)
[2021-12-14] MEDS: PIPERACILLIN/TAZOBACTAM 3.375G in DEXT 5% WATER 50ML IV SCH (05:45)
[2021-12-14 06:13] LABS: BASOPHILS % 0.1 % (0.0-2.0); EOSINOPHILS % 0.2 % (0.0-5.0); HEMATOCRIT. 24.6 % (36.0-48.0); HEMOGLOBIN. 8.5 g/dL (12.0-16.0); LYMPHOCYTES % 11.2 % (20.0-50.0); MEAN CORPUSCULAR HEMOGLOBIN 29.7 pg (28.0-32.0); MEAN CORPUSCULAR VOLUME 85.8 fL (81.0-99.0); MEAN PLATELET VOLUME 9.7 fl (7.4-10.4); MONOCYTES % 7.3 % (2.0-8.0); NEUTROPHILS % 81.2 % (40.0-76.0); PLATELET 57 x1000/uL (130-400); RED BLOOD CELL COUNT 2.87 mill/uL (4.2-5.4); RED CELL DISTRIBUTION WIDTH 18.2 % (11.6-14.6)
[2021-12-14 06:18] LABS: CHLORIDE 114 mEq/L (98-107)
[2021-12-14] MEDS: BUDESONIDE 0.5MG/2ML NEB HHN SCH (08:01)
[2021-12-14] MEDS: LEVETIRACETAM 500MG/5ML CUP PO SCH ×2 (10:00→21:29)
[2021-12-14] MEDS: PANTOPRAZOLE SODIUM 40 MG/VIAL IV SCH (10:01)
[2021-12-14] MEDS: BENZTROPINE MESYLATE 0.5MG TABLET PO SCH ×2 (10:01→21:29)
[2021-12-14] MEDS: OLANZAPINE 10MG TABLET PO SCH ×2 (10:01→16:15)
[2021-12-14] MEDS: POLYETHYLENE GLYCOL 3350 (17GM) 1 DOSE PACK PO SCH (10:01)
[2021-12-14] MEDS: BISACODYL 10MG SUPP PR SCH (10:14)
[2021-12-14 11:53] LABS: HEMATOCRIT 24.6 % (36.0-48.0); HEMOGLOBIN 8.5 g/dL (12.0-16.0)
[2021-12-14] MEDS: DEXT 10% WATER 1,000 ML IV SCH (14:21)
[2021-12-14] MEDS: MIRTAZAPINE 15MG TABLET PO SCH (16:15)
[2021-12-14] MEDS: SENNOSIDES/DOCUSATE SOD 8.6/50MG TABLET PO SCH (21:30)
[2021-12-15] VITALS (13 sets, daily range): BP systolic 103–145; BP diastolic 48–87
[2021-12-15] MEDS: ACETYLCYSTEINE 100MG/ML 10% VIAL 4ML INH SCH ×3 (01:09→14:00)
[2021-12-15] MEDS: IPRATROPIUM/ALBUTEROL 0.5-3(2.5)MG/3ML NEB HHN SCH ×6 (01:09→21:15)
[2021-12-15 01:12] LABS: HEMATOCRIT 21.9 % (36.0-48.0); HEMOGLOBIN 7.7 g/dL (12.0-16.0)
[2021-12-15] MEDS: QUETIAPINE FUMARATE 25MG TABLET PO PRN ×2 (01:44→20:16)
[2021-12-15] MEDS: ONDANSETRON HCL 4MG/2ML INJ IV PRN (01:52)
[2021-12-15] MEDS: INSULIN LISPRO 100 UNITS/ML SUBCUT SCH ×6 (04:00→23:47)
[2021-12-15] MEDS: BLOOD SUGAR DIAGNOSTIC STRIP TEST SCH ×6 (04:00→23:47)
[2021-12-15] MEDS: PHENYTOIN 100 MG/4 ML UDC NG SCH ×3 (05:18→20:16)
[2021-12-15] MEDS: DEXT 10% WATER 1,000 ML IV SCH ×2 (05:30→14:00)
[2021-12-15 06:16] LABS: HEMATOCRIT 23.2 % (36.0-48.0)
[2021-12-15] MEDS: PANTOPRAZOLE SODIUM 40 MG/VIAL IV SCH (11:25)
[2021-12-15] MEDS: BISACODYL 10MG SUPP PR SCH (11:26)
[2021-12-15] MEDS: BENZTROPINE MESYLATE 0.5MG TABLET PO SCH ×2 (11:26→20:16)
[2021-12-15] MEDS: LEVETIRACETAM 500MG/5ML CUP PO SCH ×2 (11:26→20:16)
[2021-12-15] MEDS: OLANZAPINE 10MG TABLET PO SCH ×2 (11:26→18:15)
[2021-12-15] MEDS: POLYETHYLENE GLYCOL 3350 (17GM) 1 DOSE PACK PO SCH (11:27)
[2021-12-15 13:03] LABS: HEMATOCRIT 24.7 % (36.0-48.0); HEMOGLOBIN 8.4 g/dL (12.0-16.0)
[2021-12-15] MEDS: MIRTAZAPINE 15MG TABLET PO SCH (18:15)
[2021-12-15] MEDS: SENNOSIDES/DOCUSATE SOD 8.6/50MG TABLET PO SCH (20:16)
[2021-12-16] VITALS (7 sets, daily range): BP systolic 112–143; BP diastolic 51–92
[2021-12-16] MEDS: ACETYLCYSTEINE 100MG/ML 10% VIAL 4ML INH SCH ×2 (01:22→09:17)
[2021-12-16] MEDS: IPRATROPIUM/ALBUTEROL 0.5-3(2.5)MG/3ML NEB HHN SCH ×4 (01:23→12:28)
[2021-12-16] MEDS: INSULIN LISPRO 100 UNITS/ML SUBCUT SCH ×3 (04:00→12:00)
[2021-12-16] MEDS: BLOOD SUGAR DIAGNOSTIC STRIP TEST SCH ×3 (04:00→12:36)
[2021-12-16 06:04] LABS: HEMOGLOBIN. 7.6 g/dL (12.0-16.0); MEAN CORPUSCULAR HEMOGLOBIN 28.8 pg (28.0-32.0); MEAN CORPUSCULAR VOLUME 86.9 fL (81.0-99.0); MEAN PLATELET VOLUME 9.3 fl (7.4-10.4); PLATELET 69 x1000/uL (130-400); RED BLOOD CELL COUNT 2.65 mill/uL (4.2-5.4); RED CELL DISTRIBUTION WIDTH 18.4 % (11.6-14.6)
[2021-12-16] MEDS: PHENYTOIN 100 MG/4 ML UDC NG SCH (06:20)
[2021-12-16] MEDS: OLANZAPINE 10MG TABLET PO SCH (09:18)
[2021-12-16] MEDS: POLYETHYLENE GLYCOL 3350 (17GM) 1 DOSE PACK PO SCH (09:18)
[2021-12-16] MEDS: LEVETIRACETAM 500MG/5ML CUP PO SCH (09:18)
[2021-12-16] MEDS: PANTOPRAZOLE SODIUM 40 MG/VIAL IV SCH (09:18)
[2021-12-16] MEDS: BISACODYL 10MG SUPP PR SCH (09:18)
[2021-12-16] MEDS: BENZTROPINE MESYLATE 0.5MG TABLET PO SCH (09:35)
[2021-12-16 10:51] LABS: NUCLEATED RED BLOOD CELLS 1 /100 WBC
[2021-12-16 10:52] LABS: PLATELET ESTIMATE DECREASED
== END 2021-12-16 14:30 | disposition home or self-care (01) | DRG 720 ==
LOC: ER 04:44 → EDBEDREQSVC 10:04 → EDBEDREQTM 10:04 → EDBEDREQ 10:04 → MICUSO 10:31 → EDBEDREQSVC 10:35 → EDBEDREQTM 10:35 → ENRESERV 20:36 → CANRESERV 20:36 → ENRESERV 22:50 → 5EST 12-12 02:00
PROVIDERS: ADMIT Internal Medicine; ATTEND Internal Medicine
PROC: 02HV33Z Insertion of Infusion Device into Superior Vena Cava, Percutaneous Approach (ICD-10-PCS; 2021-12-08)
PROC: B548ZZA Ultrasonography of Superior Vena Cava, Guidance (ICD-10-PCS; 2021-12-08)
PROC: 30233N1 Transfusion of Nonautologous Red Blood Cells into Peripheral Vein, Percutaneous Approach (ICD-10-PCS; principal; 2021-12-09)
PROC: 0D9670Z Drainage of Stomach with Drainage Device, Via Natural or Artificial Opening (ICD-10-PCS; 2021-12-09)
PROC: 5A09357 Assistance with Respiratory Ventilation, Less than 24 Consecutive Hours, Continuous Positive Airway Pressure (ICD-10-PCS; 2021-12-09)
DX: A41.9 Sepsis, unspecified organism (principal); J96.01 Acute respiratory failure with hypoxia; G93.41 Metabolic encephalopathy; J18.9 Pneumonia, unspecified organism; D69.6 Thrombocytopenia, unspecified; E87.8 Other disorders of electrolyte and fluid balance, not elsewhere classified; D64.9 Anemia, unspecified; F79 Unspecified intellectual disabilities; G40.909 Epilepsy, unspecified, not intractable, without status epilepticus; Z20.822 Contact with and (suspected) exposure to COVID-19; I10 Essential (primary) hypertension; R79.89 Other specified abnormal findings of blood chemistry; R68.0 Hypothermia, not associated with low environmental temperature; Z74.01 Bed confinement status; R65.20 Severe sepsis without septic shock
CPT/HCPCS: 36415; 36600; 71045; 74018; 76700; 76937; 78580; 80048; 80053; 80076; 80185; 80202; 81003; 82140; 82270; 82375; 82533; 82607; 82728; 82746; 82805; 82962; 83036; 83540; 83550; 83605; 83735; 83880; 84100; 84145; 84425; 84484; 85014; 85018; 85025; 85044; 85049; 85379; 85384; 86705; 86709; 86803; 86850; 86900; 86920; 87070; 87340; 87389; 87426; 87804; 92610; 93005; 93970; 94640; 94660; 99291; C1725; C9113; J0456; J0696; J1265; J1720; J1815; J2370; J2405; J2543; J3370; J3480; J3490; J7030; J7042; J7060; J7070; J7608; J7626; P9016; A4315

== ENCOUNTER 2021-12-16 15:34 | Emergency (ER) | payer MEDICAID, OTHER ==
[~2021-12-16] VITALS: Ht 160 cm; Wt 61.0 kg
[2021-12-16] MEDS ORDERED: ALBUTEROL (0.083%) 2.5MG/3ML NEB HHN STA (15:48)
[2021-12-16] MEDS ORDERED: VANCOMYCIN 1G PREMIX 200 ML IV ONE (16:00)
[2021-12-16] MEDS ORDERED: SODIUM CHLORIDE 0.9% 1000ML BAG (SEPSIS BOLUS) IV ONE (16:00)
[2021-12-16] MEDS ORDERED: PIPERACILLIN/TAZ 3.375G PREMIX 50 ML IV ONE (16:00)
[2021-12-16 16:24] LABS: HEMATOCRIT. 24.4 % (36.0-48.0); HEMOGLOBIN. 8.6 g/dL (12.0-16.0); MEAN CORPUSCULAR HEMOGLOBIN 29.8 pg (28.0-32.0); MEAN CORPUSCULAR VOLUME 84.3 fL (81.0-99.0); MEAN PLATELET VOLUME 9.1 fl (7.4-10.4); PLATELET 89 x1000/uL (130-400); RED CELL DISTRIBUTION WIDTH 17.8 % (11.6-14.6)
[2021-12-16 16:29] LABS: CHLORIDE 110 mEq/L (98-107)
[2021-12-16 16:45] LABS: BG BASE EXCESS 7.4 mmol/L (-2.0-2.0); BG CARBOXYHEMOGLOBIN 0.1 % (0.5-1.5); BG DEOXYHEMOGLOBIN 6.9 % (0.0-5.0); BG HCO3 ACT 32.2 mmol/L (22.0-26.0); BG METHEMOGLOBIN 0.1 % (0.0-1.5); BG OXYGEN SATURATION 93.1 % (92.0-98.5); BG OXYHEMOGLOBIN 92.9 % (94.0-97.0); BG PCO2 46.9 mmHg (35.0-45.0); BG PH 7.454 (7.350-7.450); BG PO2 69.9 mmHg (75.0-100.0); BG SAMPLE SITE RIGHT RADIAL; BG VENT MODE ROOM AIR
[2021-12-16 16:52] LABS: PLATELET ESTIMATE DECREASED
[2021-12-16 16:54] VITALS: BP 146/96
[2021-12-16] MEDS ORDERED: POTASSIUM CHLORIDE 20MEQ TABLET SR PO ONE (17:15)
[2021-12-16 17:29] LABS: BG BASE EXCESS 3.7 mmol/L (-2.0-2.0); BG CARBOXYHEMOGLOBIN 0.3 % (0.5-1.5); BG DEOXYHEMOGLOBIN 4.3 % (0.0-5.0); BG FRACTION INSPIRED OXYGEN 36; BG HCO3 ACT 28.2 mmol/L (22.0-26.0); BG METHEMOGLOBIN 0.7 % (0.0-1.5); BG OXYGEN SATURATION 95.7 % (92.0-98.5); BG OXYHEMOGLOBIN 94.7 % (94.0-97.0); BG PCO2 42.5 mmHg (35.0-45.0); BG PO2 85.8 mmHg (75.0-100.0); BG SAMPLE SITE LEFT RADIAL; BG TOTAL HEMOGLOBIN 8.1 g/dL (12.0-18.0); BG VENT MODE NASAL CANNULA
== END 2021-12-16 19:50 | disposition short-term general hospital (02) ==
LOC: ER 15:34
DX: J18.9 Pneumonia, unspecified organism (principal); I10 Essential (primary) hypertension; Z20.822 Contact with and (suspected) exposure to COVID-19; Z79.899 Other long term (current) drug therapy; Z98.890 Other specified postprocedural states; Z86.59 Personal history of other mental and behavioral disorders
CPT/HCPCS: 36415; 36600; 71045; 80053; 82375; 82805; 82962; 83605; 83880; 84145; 84484; 85025; 87040; 87426; 93005; 94640; 96365; 96366; 96367; 99285; J2543; J3370; J7030; Z7610

== ENCOUNTER 2022-02-04 09:44 | Emergency (ER) | payer OTHER ==
[~2022-02-04] VITALS: Ht 152.4 cm; Wt 62.0 kg
[2022-02-04] MEDS ORDERED: SODIUM CHLORIDE 0.9% 1,000 ML IV ONE (10:00)
[2022-02-04 10:20] LABS: BASOPHILS % 0.3 % (0.0-2.0); EOSINOPHILS % 0.1 % (0.0-5.0); LYMPHOCYTES % 11.3 % (20.0-50.0); MEAN CORPUSCULAR VOLUME 89.6 fL (81.0-99.0); MEAN PLATELET VOLUME 10.1 fl (7.4-10.4); MONOCYTES % 5.7 % (2.0-8.0); NEUTROPHILS % 82.6 % (40.0-76.0); PLATELET 125 x1000/uL (130-400); RED BLOOD CELL COUNT 2.18 mill/uL (4.2-5.4); RED CELL DISTRIBUTION WIDTH 20.7 % (11.6-14.6)
[2022-02-04 10:27] LABS: CHLORIDE 111 mEq/L (98-107)
[2022-02-04] MEDS ORDERED: PIPERACILLIN/TAZ 3.375G PREMIX 50 ML IV ONE (10:30)
[2022-02-04] MEDS ORDERED: VANCOMYCIN 1G PREMIX 200 ML IV ONE (10:30)
[2022-02-04 10:32] LABS: D-DIMER 3.58 mg/L FEU (<0.50); HEMATOCRIT. 19.6 % (36.0-48.0); HEMOGLOBIN. 6.3 g/dL (12.0-16.0); INR 1.1; PROTHROMBIN TIME 11.3 sec (9.6-11.0)
[2022-02-04] MEDS ORDERED: NOREPINEPHRINE 8MG/250ML PMX 250 ML IV STA (11:15)
[2022-02-04 13:06] LABS: HCG SCREEN NEGATIVE
[2022-02-04] MEDS ORDERED: DOPAMINE 400MG/250ML PREMIX 250 ML IV STA (13:37)
[2022-02-04 13:49] VITALS: BP 125/60
== END 2022-02-04 14:47 | disposition short-term general hospital (02) ==
LOC: ER 09:44 → EDBEDREQ 12:54 → EDBEDREQTM 12:58 → EDBEDREQ 12:58 → EDBEDREQSVC 13:33 → EDBEDREQ 13:33 → EDBEDREQTM 13:33 → ER 14:47 → CANBEDREQ 21:38
DX: D64.89 Other specified anemias (principal); R57.8 Other shock; K66.1 Hemoperitoneum; E78.00 Pure hypercholesterolemia, unspecified; I10 Essential (primary) hypertension; R56.9 Unspecified convulsions; R62.50 Unspecified lack of expected normal physiological development in childhood
CPT/HCPCS: 36415; 36556; 70450; 71045; 71275; 74177; 80053; 82962; 83605; 84145; 84703; 85025; 85379; 85610; 86850; 86900; 86901; 86920; 87040; 87077; 87426; 93005; 93880; 96361; 96365; 96368; 99291; C9803; J1265; J2543; J3370; J3490; J7030; P9016

== ENCOUNTER 2022-06-09 17:25 | Inpatient (IN) | payer MEDICAID, OTHER ==
[~2022-06-09] VITALS: Ht 154.9 cm; Wt 59.9 kg
[~2022-06-09 17:25] MED LIST changes: -OMEP20TA2 MT; +OMEP20TA23 MT
[2022-06-09] MEDS ORDERED: SODIUM CHLORIDE 0.9% 1000ML BAG (SEPSIS BOLUS) IV ONE (18:15)
[2022-06-09 18:51] LABS: CLARITY URINE CLOUDY (CLEAR); COLOR URINE YELLOW (YELLOW); KETONES URINE NEGATIVE (NEGATIVE); LEUKOCYTE ESTERASE URINE 3+ (NEGATIVE); NITRITE URINE NEGATIVE (NEGATIVE); OCCULT BLOOD URINE TRACE (NEGATIVE); PROTEIN URINE 1+ (NEGATIVE); SPECIFIC GRAVITY URINE 1.023 (1.005-1.030); UROBILINOGEN URINE 0.2 E.U./dL (0.2-1.0)
[2022-06-09 18:51] LABS: BASOPHILS % 0.2 % (0.0-2.0); HEMATOCRIT. 31.6 % (36.0-48.0); HEMOGLOBIN. 10.4 g/dL (12.0-16.0); LYMPHOCYTES % 19.2 % (20.0-50.0); MEAN CORPUSCULAR HEMOGLOBIN 29.7 pg (28.0-32.0); MEAN CORPUSCULAR VOLUME 90.1 fL (81.0-99.0); MEAN PLATELET VOLUME 9.9 fl (7.4-10.4); MONOCYTES % 4.8 % (2.0-8.0); NEUTROPHILS % 75.8 % (40.0-76.0); PLATELET 63 x1000/uL (130-400); RED BLOOD CELL COUNT 3.51 mill/uL (4.2-5.4); RED CELL DISTRIBUTION WIDTH 18.6 % (11.6-14.6)
[2022-06-09 18:57] LABS: CHLORIDE 116 mEq/L (98-107)
[2022-06-09 19:09] LABS: PROTHROMBIN TIME 10.7 sec (9.6-11.0)
[2022-06-09] MEDS ORDERED: VANCOMYCIN 1G PREMIX 200 ML IV ONE (19:15)
[2022-06-09] MEDS ORDERED: PIPERACILLIN/TAZ 3.375G PREMIX 50 ML IV ONE (19:15)
[2022-06-09] MEDS ORDERED: NOREPINEPHRINE 8 MG in DEXT 5% WATER 242 ML IV STA (20:37)
[2022-06-09] MEDS ORDERED: NOREPINEPHRINE 8MG/250ML PMX 250 ML IV STA (20:50)
[2022-06-09] MEDS ORDERED: PHENYTOIN SODIUM EXTENDED 100MG CAPSULE PO SCH (21:45)
[2022-06-09] MEDS ORDERED: ACETAMINOPHEN 325MG TABLET PO PRN (21:45)
[2022-06-09] MEDS ORDERED: ONDANSETRON HCL 4MG/2ML INJ IV PRN (21:45)
[2022-06-09] MEDS ORDERED: ENOXAPARIN 40MG/0.4ML SYR SUBCUT SCH (21:45)
[2022-06-09 22:52] VITALS: BP 148/46
[2022-06-09 22:54] VITALS: BP 167/89
[2022-06-09 23:00] VITALS: BP 126/68
[2022-06-09 23:15] VITALS: BP 104/54
[2022-06-09 23:30] VITALS: BP 103/56
[2022-06-09 23:45] VITALS: BP 96/44
[2022-06-10] VITALS (98 sets, daily range): BP systolic 56–166; BP diastolic 21–133
[2022-06-10] MEDS: SODIUM CHLORIDE 0.9% 1,000 ML IV SCH ×4 (00:01→21:49)
[2022-06-10] MEDS ORDERED: NOREPINEPHRINE 8MG/250ML PMX 250 ML IV PRN (01:15)
[2022-06-10] MEDS ORDERED: NOREPINEPHRINE 8 MG in DEXTROSE 5% WATER 250 ML IV PRN (01:30)
[2022-06-10] MEDS ORDERED: VANCOMYCIN 750MG PREMIX 150 ML IV SCH ×2 (03:00→21:00)
[2022-06-10] MEDS ORDERED: PIPERACILLIN/TAZOBACTAM 3.375 G in DEXTROSE 5% WATER 50 ML IV SCH (06:00)
[2022-06-10 06:08] LABS: BASOPHILS % 0.2 % (0.0-2.0); HEMATOCRIT. 31.8 % (36.0-48.0); HEMOGLOBIN. 10.5 g/dL (12.0-16.0); LYMPHOCYTES % 11.9 % (20.0-50.0); MEAN CORPUSCULAR HEMOGLOBIN 29.9 pg (28.0-32.0); MEAN CORPUSCULAR VOLUME 90.4 fL (81.0-99.0); MEAN PLATELET VOLUME 10.2 fl (7.4-10.4); MONOCYTES % 8.4 % (2.0-8.0); NEUTROPHILS % 79.5 % (40.0-76.0); PLATELET 76 x1000/uL (130-400); RED BLOOD CELL COUNT 3.52 mill/uL (4.2-5.4)
[2022-06-10 06:49] LABS: CHLORIDE 121 mEq/L (98-107)
[2022-06-10] MEDS ORDERED: LEVETIRACETAM 500MG TABLET PO SCH (09:00)
[2022-06-10] MEDS ORDERED: LEVETIRACETAM 500MG PREMIX 100 ML IV SCH (09:00)
[2022-06-10] MEDS ORDERED: MEDICATION NOT ON FORMULARY EA (Oxcarbazepine 600 MG) PO SCH (09:00)
[2022-06-10] MEDS: OXCARBAZEPINE 300MG TABLET PO SCH ×2 (09:00→17:00)
[2022-06-10] MEDS ORDERED: MEDICATION NOT ON FORMULARY EA (Levetiracetam (Keppra) 1 TAB) MT SCH (09:00)
[2022-06-10] MEDS: PHENYTOIN SODIUM 100MG/2ML VIAL IV SCH ×2 (09:26→17:53)
[2022-06-10] MEDS ORDERED: LEVETIRACETAM 1000MG PREMIX 100 ML IV SCH (10:00)
[2022-06-10] MEDS ORDERED: INSULIN REGULAR (HUMULIN R) 300UNITS/3ML VIAL IV NR (11:15)
[2022-06-10] MEDS ORDERED: DEXTROSE 50% WATER 50ML SYRINGE IV NR (11:15)
[2022-06-10] MEDS ORDERED: IPRATROPIUM/ALBUTEROL 0.5-3(2.5)MG/3ML NEB HHN PRN (12:15)
[2022-06-10] MEDS: PIPERACILLIN/TAZOBACTAM 3.375 G in DEXTROSE 5% WATER 50 ML IV SCH ×2 (13:37→21:48)
[2022-06-10 14:00] LABS: T4 FREE 1.18 ng/dL (0.76-1.46)
[2022-06-10] MEDS ORDERED: DOPAMINE 800MG PREMIX (DOUBLE) 250 ML IV SCH (18:40)
[2022-06-10] MEDS ORDERED: LORAZEPAM 2MG/ML CPJ IV NR (19:24)
[2022-06-10] MEDS ORDERED: DIPHENHYDRAMINE 50MG/ML VIAL IV NR (20:15)
[2022-06-10] MEDS: LEVETIRACETAM 1,000 MG in SODIUM CHLORIDE 0.9% 100 ML IV SCH (21:47)
[2022-06-11] VITALS (57 sets, daily range): BP systolic 107–172; BP diastolic 22–102
[2022-06-11] MEDS: SODIUM CHLORIDE 0.9% 1,000 ML IV SCH ×3 (04:07→22:08)
[2022-06-11] MEDS: PIPERACILLIN/TAZOBACTAM 3.375 G in DEXTROSE 5% WATER 50 ML IV SCH ×2 (06:00→14:42)
[2022-06-11 06:13] LABS: CHLORIDE 118 mEq/L (98-107)
[2022-06-11 06:26] LABS: EOSINOPHILS % 0.1 % (0.0-5.0)
[2022-06-11 06:30] LABS: BASOPHILS % 0.5 % (0.0-2.0); HEMATOCRIT. 36.3 % (36.0-48.0); HEMOGLOBIN. 12.2 g/dL (12.0-16.0); LYMPHOCYTES % 16.7 % (20.0-50.0); MEAN CORPUSCULAR HEMOGLOBIN 30.2 pg (28.0-32.0); NEUTROPHILS % 73.7 % (40.0-76.0); RED BLOOD CELL COUNT 4.03 mill/uL (4.2-5.4); RED CELL DISTRIBUTION WIDTH 18.1 % (11.6-14.6)
[2022-06-11 08:00] LABS: PLATELET 85 x1000/uL (130-400)
[2022-06-11] MEDS ORDERED: SODIUM POLYSTYRENE SULFONATE 15 G/60 ML BOT PO SCH (08:30)
[2022-06-11] MEDS: OXCARBAZEPINE 300MG TABLET PO SCH ×2 (08:56→17:25)
[2022-06-11] MEDS: PHENYTOIN SODIUM 100MG/2ML VIAL IV SCH ×2 (08:56→17:25)
[2022-06-11] MEDS: LEVETIRACETAM 1,000 MG in SODIUM CHLORIDE 0.9% 100 ML IV SCH (09:00)
[2022-06-11] MEDS ORDERED: LIDOCAINE HCL/PF 1% 10 MG/ML 5ML VIAL ONE (09:16)
[2022-06-11] MEDS ORDERED: DOPAMINE 800MG PREMIX (DOUBLE) 250 ML IV SCH (10:03)
[2022-06-11] MEDS ORDERED: VANCOMYCIN 750MG PREMIX 150 ML IV SCH (12:00)
[2022-06-11] MEDS: SULFAMETHOXAZOLE/TRIMETHOPRIM 800/160MG TABLET PO SCH (22:07)
[2022-06-11] MEDS: LEVETIRACETAM 1000MG PREMIX 100 ML IV SCH (22:07)
[2022-06-12] VITALS (92 sets, daily range): BP systolic 51–168; BP diastolic 25–121
[2022-06-12] MEDS: SODIUM CHLORIDE 0.9% 1,000 ML IV SCH ×3 (06:00→21:29)
[2022-06-12 06:01] LABS: BASOPHILS % 0.2 % (0.0-2.0); HEMATOCRIT. 33.4 % (36.0-48.0); HEMOGLOBIN. 11.6 g/dL (12.0-16.0); LYMPHOCYTES % 15.9 % (20.0-50.0); MEAN CORPUSCULAR VOLUME 86.6 fL (81.0-99.0); MONOCYTES % 5.1 % (2.0-8.0); NEUTROPHILS % 78.8 % (40.0-76.0); PLATELET 71 x1000/uL (130-400); RED BLOOD CELL COUNT 3.86 mill/uL (4.2-5.4); RED CELL DISTRIBUTION WIDTH 17.9 % (11.6-14.6)
[2022-06-12 06:10] LABS: CHLORIDE 112 mEq/L (98-107)
[2022-06-12] MEDS: SULFAMETHOXAZOLE/TRIMETHOPRIM 800/160MG TABLET PO SCH ×2 (08:39→20:46)
[2022-06-12] MEDS: OXCARBAZEPINE 300MG TABLET PO SCH ×2 (08:39→19:21)
[2022-06-12] MEDS: PHENYTOIN SODIUM 100MG/2ML VIAL IV SCH ×2 (08:39→19:21)
[2022-06-12] MEDS: LEVETIRACETAM 1000MG PREMIX 100 ML IV SCH ×2 (08:40→20:46)
[2022-06-12] MEDS: LORAZEPAM 2MG/ML CPJ IM PRN (21:29)
[2022-06-13] VITALS (95 sets, daily range): BP systolic 57–152; BP diastolic 40–119
[2022-06-13] MEDS: SODIUM CHLORIDE 0.9% 1,000 ML IV SCH ×3 (06:38→15:49)
[2022-06-13] MEDS: OXCARBAZEPINE 300MG TABLET PO SCH ×2 (09:00→18:44)
[2022-06-13] MEDS: SULFAMETHOXAZOLE/TRIMETHOPRIM 800/160MG TABLET PO SCH ×2 (09:00→20:25)
[2022-06-13] MEDS: PHENYTOIN SODIUM 100MG/2ML VIAL IV SCH ×2 (10:09→18:44)
[2022-06-13] MEDS: LEVETIRACETAM 1000MG PREMIX 100 ML IV SCH ×2 (12:31→20:26)
[2022-06-13] MEDS: LORAZEPAM 2MG/ML CPJ IM PRN (20:25)
[2022-06-14] VITALS (43 sets, daily range): BP systolic 97–166; BP diastolic 49–110
[2022-06-14 05:03] LABS: BASOPHILS % 0.1 % (0.0-2.0); HEMATOCRIT. 28.8 % (36.0-48.0); LYMPHOCYTES % 32.1 % (20.0-50.0); MEAN CORPUSCULAR HEMOGLOBIN 30.3 pg (28.0-32.0); MEAN CORPUSCULAR VOLUME 87.2 fL (81.0-99.0); MONOCYTES % 10.4 % (2.0-8.0); NEUTROPHILS % 57.4 % (40.0-76.0); PLATELET 68 x1000/uL (130-400); RED CELL DISTRIBUTION WIDTH 18.1 % (11.6-14.6)
[2022-06-14 05:09] LABS: CHLORIDE 116 mEq/L (98-107)
[2022-06-14] MEDS: SODIUM CHLORIDE 0.9% 1,000 ML IV SCH ×2 (05:56→17:52)
[2022-06-14] MEDS: SULFAMETHOXAZOLE/TRIMETHOPRIM 800/160MG TABLET PO SCH ×2 (09:00→21:00)
[2022-06-14] MEDS: LEVETIRACETAM 1000MG PREMIX 100 ML IV SCH ×2 (09:09→21:00)
[2022-06-14] MEDS: PHENYTOIN SODIUM 100MG/2ML VIAL IV SCH ×2 (09:09→18:06)
[2022-06-14] MEDS: OXCARBAZEPINE 300MG TABLET PO SCH ×2 (09:09→18:35)
[2022-06-14] MEDS ORDERED: MAGNESIUM 2 G PREMIX 50 ML IV SCH (11:00)
[2022-06-14] MEDS: MAGNESIUM OXIDE 400MG TABLET PO SCH (11:25)
[2022-06-15] VITALS (24 sets, daily range): BP systolic 43–163; BP diastolic 27–100
[2022-06-15 06:01] LABS: BASOPHILS % 0.2 % (0.0-2.0); HEMATOCRIT. 28.5 % (36.0-48.0); HEMOGLOBIN. 9.9 g/dL (12.0-16.0); LYMPHOCYTES % 11.2 % (20.0-50.0); MEAN CORPUSCULAR HEMOGLOBIN 30.2 pg (28.0-32.0); MEAN CORPUSCULAR VOLUME 87.3 fL (81.0-99.0); MEAN PLATELET VOLUME 8.9 fl (7.4-10.4); MONOCYTES % 5.7 % (2.0-8.0); NEUTROPHILS % 82.9 % (40.0-76.0); PLATELET 62 x1000/uL (130-400); RED BLOOD CELL COUNT 3.27 mill/uL (4.2-5.4); RED CELL DISTRIBUTION WIDTH 18.5 % (11.6-14.6)
[2022-06-15 06:10] LABS: CHLORIDE 115 mEq/L (98-107)
[2022-06-15] MEDS: SODIUM CHLORIDE 0.9% 1,000 ML IV SCH ×2 (07:45→21:17)
[2022-06-15] MEDS: MAGNESIUM OXIDE 400MG TABLET PO SCH (09:00)
[2022-06-15] MEDS: PHENYTOIN SODIUM 100MG/2ML VIAL IV SCH ×2 (09:00→16:43)
[2022-06-15] MEDS: OXCARBAZEPINE 300MG TABLET PO SCH ×2 (09:01→16:43)
[2022-06-15] MEDS: SULFAMETHOXAZOLE/TRIMETHOPRIM 800/160MG TABLET PO SCH ×2 (09:02→21:15)
[2022-06-15] MEDS: LEVETIRACETAM 1000MG PREMIX 100 ML IV SCH ×2 (09:02→21:15)
[2022-06-15] MEDS ORDERED: HYDRALAZINE 20MG/ML VIAL IV PRN (15:30)
[2022-06-16] VITALS (39 sets, daily range): BP systolic 81–148; BP diastolic 45–96
[2022-06-16] MEDS: SULFAMETHOXAZOLE/TRIMETHOPRIM 800/160MG TABLET PO SCH ×3 (09:00→20:51)
[2022-06-16] MEDS: MAGNESIUM OXIDE 400MG TABLET PO SCH ×2 (09:00→10:32)
[2022-06-16] MEDS: OXCARBAZEPINE 300MG TABLET PO SCH ×3 (09:00→17:53)
[2022-06-16] MEDS: PHENYTOIN SODIUM 100MG/2ML VIAL IV SCH ×3 (09:00→17:51)
[2022-06-16] MEDS: LEVETIRACETAM 1000MG PREMIX 100 ML IV SCH ×2 (10:32→20:49)
[2022-06-16] MEDS: SODIUM CHLORIDE 0.9% 1,000 ML IV SCH ×2 (10:33→22:21)
[2022-06-16] MEDS ORDERED: SODIUM CHLORIDE 0.9% 500 ML IV ONE (10:45)
[2022-06-16] MEDS ORDERED: LACTULOSE 20G/30ML UDC PO PRN ×2 (18:00→21:00)
[2022-06-16] MEDS ORDERED: QUETIAPINE FUMARATE 50MG TABLET PO NR (22:00)
[2022-06-17] VITALS (56 sets, daily range): BP systolic 53–179; BP diastolic 24–132
[2022-06-17 06:36] LABS: CHLORIDE 117 mEq/L (98-107)
[2022-06-17] MEDS: LEVETIRACETAM 1000MG PREMIX 100 ML IV SCH ×2 (08:54→20:45)
[2022-06-17] MEDS: SULFAMETHOXAZOLE/TRIMETHOPRIM 800/160MG TABLET PO SCH ×2 (08:54→20:45)
[2022-06-17] MEDS: OXCARBAZEPINE 300MG TABLET PO SCH ×2 (08:55→17:15)
[2022-06-17] MEDS: PHENYTOIN SODIUM 100MG/2ML VIAL IV SCH ×2 (08:55→17:15)
[2022-06-17] MEDS: MAGNESIUM OXIDE 400MG TABLET PO SCH (08:55)
[2022-06-17 10:55] LABS: BASOPHILS % 0.2 % (0.0-2.0); HEMATOCRIT. 24.9 % (36.0-48.0); HEMOGLOBIN. 8.4 g/dL (12.0-16.0); LYMPHOCYTES % 10.3 % (20.0-50.0); MEAN CORPUSCULAR HEMOGLOBIN 29.8 pg (28.0-32.0); MEAN CORPUSCULAR VOLUME 88.2 fL (81.0-99.0); MEAN PLATELET VOLUME 8.5 fl (7.4-10.4); MONOCYTES % 4.7 % (2.0-8.0); NEUTROPHILS % 84.8 % (40.0-76.0); PLATELET 63 x1000/uL (130-400); RED BLOOD CELL COUNT 2.82 mill/uL (4.2-5.4); RED CELL DISTRIBUTION WIDTH 19.3 % (11.6-14.6)
[2022-06-17] MEDS: DEXT 5%/0.45% NACL 1000ML 1,000 ML IV SCH (13:59)
[2022-06-17] MEDS: BENZONATATE 100MG CAPSULE PO PRN (23:24)
[2022-06-18] VITALS (18 sets, daily range): BP systolic 108–169; BP diastolic 51–102
[2022-06-18] MEDS: DEXT 5%/0.45% NACL 1000ML 1,000 ML IV SCH ×2 (02:50→16:10)
[2022-06-18 05:33] LABS: HEMATOCRIT. 29.4 % (36.0-48.0); HEMOGLOBIN. 9.9 g/dL (12.0-16.0); MEAN CORPUSCULAR HEMOGLOBIN 29.4 pg (28.0-32.0); MEAN CORPUSCULAR VOLUME 87.3 fL (81.0-99.0); PLATELET 84 x1000/uL (130-400); RED BLOOD CELL COUNT 3.37 mill/uL (4.2-5.4); RED CELL DISTRIBUTION WIDTH 19.1 % (11.6-14.6)
[2022-06-18 06:17] LABS: CHLORIDE 112 mEq/L (98-107)
[2022-06-18 07:18] LABS: PLATELET ESTIMATE DECREASED
[2022-06-18] MEDS: LEVETIRACETAM 1000MG PREMIX 100 ML IV SCH ×2 (09:00→21:20)
[2022-06-18] MEDS: PHENYTOIN SODIUM 100MG/2ML VIAL IV SCH ×2 (09:00→13:56)
[2022-06-18] MEDS: OXCARBAZEPINE 300MG TABLET PO SCH ×2 (09:00→17:00)
[2022-06-18] MEDS: MAGNESIUM OXIDE 400MG TABLET PO SCH (09:00)
[2022-06-18] MEDS: PANTOPRAZOLE SODIUM 40 MG/VIAL IV SCH (12:15)
[2022-06-18 14:18] LABS: TOTAL IRON BINDING CAPACITY 154 ug/dL (250-450)
[2022-06-18 16:27] LABS: FERRITIN 1650 ng/mL (10-291)
[2022-06-19] VITALS (13 sets, daily range): BP systolic 92–158; BP diastolic 35–99
[2022-06-19] MEDS: DEXT 5%/0.45% NACL 1000ML 1,000 ML IV SCH ×2 (05:30→17:08)
[2022-06-19 06:54] LABS: BASOPHILS % 0.3 % (0.0-2.0); HEMATOCRIT. 29.8 % (36.0-48.0); HEMOGLOBIN. 10.2 g/dL (12.0-16.0); LYMPHOCYTES % 8.3 % (20.0-50.0); MEAN CORPUSCULAR HEMOGLOBIN 29.8 pg (28.0-32.0); MEAN CORPUSCULAR VOLUME 87.4 fL (81.0-99.0); MEAN PLATELET VOLUME 8.5 fl (7.4-10.4); NEUTROPHILS % 88.4 % (40.0-76.0); PLATELET 99 x1000/uL (130-400); RED BLOOD CELL COUNT 3.41 mill/uL (4.2-5.4); RED CELL DISTRIBUTION WIDTH 19.1 % (11.6-14.6)
[2022-06-19 07:22] LABS: CHLORIDE 107 mEq/L (98-107)
[2022-06-19] MEDS: LEVETIRACETAM 1000MG PREMIX 100 ML IV SCH ×2 (09:20→23:13)
[2022-06-19] MEDS: PHENYTOIN SODIUM 100MG/2ML VIAL IV SCH ×2 (09:21→17:08)
[2022-06-19] MEDS: PANTOPRAZOLE SODIUM 40 MG/VIAL IV SCH (09:21)
[2022-06-19] MEDS: MAGNESIUM OXIDE 400MG TABLET PO SCH (09:21)
[2022-06-19] MEDS: OXCARBAZEPINE 300MG TABLET PO SCH ×2 (09:21→17:08)
[2022-06-20] VITALS (11 sets, daily range): BP systolic 103–154; BP diastolic 55–92
[2022-06-20 07:03] LABS: CHLORIDE 110 mEq/L (98-107)
[2022-06-20 07:10] LABS: BASOPHILS % 0.1 % (0.0-2.0); HEMATOCRIT. 24.4 % (36.0-48.0); HEMOGLOBIN. 8.6 g/dL (12.0-16.0); LYMPHOCYTES % 12.3 % (20.0-50.0); MEAN CORPUSCULAR HEMOGLOBIN 30.7 pg (28.0-32.0); MEAN CORPUSCULAR VOLUME 87.5 fL (81.0-99.0); MEAN PLATELET VOLUME 8.4 fl (7.4-10.4); MONOCYTES % 4.6 % (2.0-8.0); PLATELET 141 x1000/uL (130-400); RED BLOOD CELL COUNT 2.79 mill/uL (4.2-5.4); RED CELL DISTRIBUTION WIDTH 19.4 % (11.6-14.6)
[2022-06-20] MEDS: DEXT 5%/0.45% NACL 1000ML 1,000 ML IV SCH ×2 (08:10→20:46)
[2022-06-20] MEDS: PHENYTOIN SODIUM 100MG/2ML VIAL IV SCH (09:00)
[2022-06-20] MEDS: PANTOPRAZOLE SODIUM 40 MG/VIAL IV SCH (09:00)
[2022-06-20] MEDS: LEVETIRACETAM 1000MG PREMIX 100 ML IV SCH (09:00)
[2022-06-20] MEDS: OXCARBAZEPINE 300MG TABLET PO SCH ×2 (09:14→17:32)
[2022-06-20] MEDS: MAGNESIUM OXIDE 400MG TABLET PO SCH (09:14)
[2022-06-20] MEDS: PHENYTOIN SODIUM EXTENDED 100MG CAPSULE PO SCH (17:32)
[2022-06-20] MEDS: LEVETIRACETAM 500MG TABLET PO SCH (20:45)
[2022-06-20] MEDS ORDERED: LEVETIRACETAM 1,000 MG in SODIUM CHLORIDE 0.9% 100 ML IV SCH (21:00)
[2022-06-21] VITALS (10 sets, daily range): BP systolic 109–145; BP diastolic 49–101
[2022-06-21] MEDS: PANTOPRAZOLE 40MG DR TABLET PO SCH (06:24)
[2022-06-21 08:07] LABS: CHLORIDE 108 mEq/L (98-107)
[2022-06-21 08:17] LABS: BASOPHILS % 0.3 % (0.0-2.0); HEMOGLOBIN. 8.2 g/dL (12.0-16.0); LYMPHOCYTES % 21.3 % (20.0-50.0); MEAN CORPUSCULAR HEMOGLOBIN 30.5 pg (28.0-32.0); MEAN CORPUSCULAR VOLUME 85.7 fL (81.0-99.0); MEAN PLATELET VOLUME 7.9 fl (7.4-10.4); MONOCYTES % 4.9 % (2.0-8.0); NEUTROPHILS % 73.5 % (40.0-76.0); PLATELET 155 x1000/uL (130-400); RED BLOOD CELL COUNT 2.68 mill/uL (4.2-5.4); RED CELL DISTRIBUTION WIDTH 18.5 % (11.6-14.6)
[2022-06-21] MEDS: OXCARBAZEPINE 300MG TABLET PO SCH ×2 (08:39→17:54)
[2022-06-21] MEDS: MAGNESIUM OXIDE 400MG TABLET PO SCH (08:39)
[2022-06-21] MEDS: LEVETIRACETAM 500MG TABLET PO SCH ×2 (08:39→20:40)
[2022-06-21] MEDS: PHENYTOIN SODIUM EXTENDED 100MG CAPSULE PO SCH ×2 (08:39→17:54)
[2022-06-21] MEDS ORDERED: BARIUM SULFATE 176 GM SUSP.RECON ONE (09:27)
[2022-06-21] MEDS: DEXT 5%/0.45% NACL 1000ML 1,000 ML IV SCH (10:50)
[2022-06-21] MEDS: BENZONATATE 100MG CAPSULE PO PRN (16:00)
[2022-06-22] VITALS: BP 111/70
[2022-06-22] MEDS: DEXT 5%/0.45% NACL 1000ML 1,000 ML IV SCH (00:10)
[2022-06-22 04:00] VITALS: BP 135/79
[2022-06-22 06:00] VITALS: BP 149/77
[2022-06-22 06:34] LABS: BASOPHILS % 0.2 % (0.0-2.0); HEMATOCRIT. 23.8 % (36.0-48.0); HEMOGLOBIN. 8.3 g/dL (12.0-16.0); LYMPHOCYTES % 21.1 % (20.0-50.0); MEAN CORPUSCULAR HEMOGLOBIN 30.1 pg (28.0-32.0); MEAN CORPUSCULAR VOLUME 86.9 fL (81.0-99.0); MEAN PLATELET VOLUME 7.7 fl (7.4-10.4); NEUTROPHILS % 72.7 % (40.0-76.0); PLATELET 189 x1000/uL (130-400); RED BLOOD CELL COUNT 2.74 mill/uL (4.2-5.4); RED CELL DISTRIBUTION WIDTH 18.5 % (11.6-14.6)
[2022-06-22 06:43] LABS: CHLORIDE 108 mEq/L (98-107)
[2022-06-22] MEDS: PANTOPRAZOLE 40MG DR TABLET PO SCH (06:46)
[2022-06-22 08:00] VITALS: BP 116/89
[2022-06-22] MEDS: MAGNESIUM OXIDE 400MG TABLET PO SCH (08:46)
[2022-06-22] MEDS: LEVETIRACETAM 500MG TABLET PO SCH (08:46)
[2022-06-22] MEDS: OXCARBAZEPINE 300MG TABLET PO SCH (08:46)
[2022-06-22] MEDS: PHENYTOIN SODIUM EXTENDED 100MG CAPSULE PO SCH (08:46)
[2022-06-22 09:57] VITALS: BP 149/77
[2022-06-22 10:00] VITALS: BP 90/47
[2022-06-23] MEDS ORDERED: FAMOTIDINE 20MG TABLET PO SCH (09:00)
== END 2022-06-22 14:15 | disposition home health service (06) | DRG 720 ==
LOC: ER 17:25 → EDBEDREQ 18:18 → EDBEDREQSVC 21:35 → EDBEDREQ 21:35 → EDBEDREQTM 21:35 → ENRESERV 21:42 → CVICU 23:30 → 3WST 06-18 02:23
PROVIDERS: ADMIT Internal Medicine; ATTEND Internal Medicine
PROC: 02HV33Z Insertion of Infusion Device into Superior Vena Cava, Percutaneous Approach (ICD-10-PCS; principal; 2022-06-09)
PROC: B548ZZA Ultrasonography of Superior Vena Cava, Guidance (ICD-10-PCS; 2022-06-09)
PROC: 4A00X4Z Measurement of Central Nervous Electrical Activity, External Approach (ICD-10-PCS; 2022-06-11)
PROC: 05HY33Z Insertion of Infusion Device into Upper Vein, Percutaneous Approach (ICD-10-PCS; 2022-06-11)
PROC: B54MZZA Ultrasonography of Right Upper Extremity Veins, Guidance (ICD-10-PCS; 2022-06-11)
DX: A41.4 Sepsis due to anaerobes (principal); R65.21 Severe sepsis with septic shock; J69.0 Pneumonitis due to inhalation of food and vomit; G93.41 Metabolic encephalopathy; E44.0 Moderate protein-calorie malnutrition; R13.11 Dysphagia, oral phase; D69.6 Thrombocytopenia, unspecified; I44.1 Atrioventricular block, second degree; E87.5 Hyperkalemia; I10 Essential (primary) hypertension; N39.0 Urinary tract infection, site not specified; G93.89 Other specified disorders of brain; G40.909 Epilepsy, unspecified, not intractable, without status epilepticus; E83.42 Hypomagnesemia; E78.00 Pure hypercholesterolemia, unspecified; C71.9 Malignant neoplasm of brain, unspecified; R74.01 Elevation of levels of liver transaminase levels; D64.9 Anemia, unspecified; I08.1 Rheumatic disorders of both mitral and tricuspid valves; E16.2 Hypoglycemia, unspecified; F79 Unspecified intellectual disabilities; F84.0 Autistic disorder; Z79.899 Other long term (current) drug therapy; Z78.1 Physical restraint status; Z86.73 Personal history of transient ischemic attack (TIA), and cerebral infarction without residual deficits; Z87.01 Personal history of pneumonia (recurrent); Z68.24 Body mass index [BMI] 24.0-24.9, adult
CPT/HCPCS: 36415; 36573; 71045; 74230; 80048; 80053; 80185; 80202; 81003; 82533; 82607; 82728; 82746; 82962; 83540; 83550; 83605; 83735; 84132; 84145; 84439; 84443; 85025; 85044; 87077; 87186; 92610; 92611; 93005; 93306; 93970; 93971; 94640; 97162; 99285; A6261; C1725; C1887; C9113; J0360; J1165; J1265; J1815; J1953; J2060; J2405; J2543; J3370; J3475; J3490; J7030; J7050; J7060

== ENCOUNTER 2022-06-22 15:17 | Emergency (ER) | payer OTHER ==
[~2022-06-22] VITALS: Ht 162.6 cm; Wt 59.0 kg
[~2022-06-22 15:17] MED LIST changes: -AMLO10TA4 MT; -BENZ1TAB7 MT; -CHLO100T22 PO; -CHLO200T9 PO; -CLON0.1T PO; -DOCU-150 MT; -FERR-43 PO; -LEVE1000 MT; -LEVE750T66 PO; -LEVO750T46 MT; -LOSA50TA3 MT; -METO-539 PO; -OMEP20TA23 MT
[2022-06-22 16:53] LABS: BASOPHILS % 0.3 % (0.0-2.0); HEMATOCRIT. 25.3 % (36.0-48.0); HEMOGLOBIN. 8.8 g/dL (12.0-16.0); LYMPHOCYTES % 16.6 % (20.0-50.0); MEAN CORPUSCULAR HEMOGLOBIN 30.2 pg (28.0-32.0); MEAN CORPUSCULAR VOLUME 87.1 fL (81.0-99.0); MEAN PLATELET VOLUME 7.8 fl (7.4-10.4); MONOCYTES % 6.6 % (2.0-8.0); NEUTROPHILS % 76.5 % (40.0-76.0); PLATELET 211 x1000/uL (130-400); RED BLOOD CELL COUNT 2.91 mill/uL (4.2-5.4); RED CELL DISTRIBUTION WIDTH 18.3 % (11.6-14.6)
[2022-06-22 17:01] LABS: PROTHROMBIN TIME 10.7 sec (9.6-11.0)
[2022-06-22 17:11] LABS: CHLORIDE 108 mEq/L (98-107)
[2022-06-22 17:57] LABS: CLARITY URINE CLEAR (CLEAR); COLOR URINE YELLOW (YELLOW); KETONES URINE 1+ (NEGATIVE); LEUKOCYTE ESTERASE URINE NEGATIVE (NEGATIVE); NITRITE URINE NEGATIVE (NEGATIVE); OCCULT BLOOD URINE NEGATIVE (NEGATIVE); PH URINE 5.5 (4.5-8.0); PROTEIN URINE TRACE (NEGATIVE); SPECIFIC GRAVITY URINE 1.027 (1.005-1.030); UROBILINOGEN URINE 0.2 E.U./dL (0.2-1.0)
[2022-06-22] MEDS: LORAZEPAM 2MG/ML CPJ IV ONE (22:32)
[2022-06-22 23:05] VITALS: BP 127/78
== END 2022-06-22 23:30 | disposition home or self-care (01) ==
LOC: ER 15:17 → EDBEDREQ 21:23 → EDBEDREQSVC 21:23 → EDBEDREQTM 21:23 → ER 23:30 → CANBEDREQ 06-23 08:56
DX: R05.9 Cough, unspecified (principal); E78.00 Pure hypercholesterolemia, unspecified; Z20.822 Contact with and (suspected) exposure to COVID-19; Z79.899 Other long term (current) drug therapy; Z86.59 Personal history of other mental and behavioral disorders; Z98.890 Other specified postprocedural states
CPT/HCPCS: 36415; 71045; 80053; 81003; 83605; 84145; 85025; 85610; 87040; 87086; 87426; 93005; 96374; 99285; C9803; J2060

== ENCOUNTER 2022-08-07 17:04 | Inpatient (IN) | payer OTHER ==
[~2022-08-07] VITALS: Ht 160 cm; Wt 60.6 kg
[2022-08-07] MEDS ORDERED: ASPIRIN 81MG TABLET PO ONE (22:45)
[2022-08-08] VITALS (72 sets, daily range): BP systolic 51–149; BP diastolic 17–129
[2022-08-08] MEDS ORDERED: AZITHROMYCIN 500 MG in DEXT 5% WATER 250 ML IV SCH (01:00)
[2022-08-08] MEDS ORDERED: CEFTRIAXONE 1 G PREMIX 50 ML IV ONE (01:00)
[2022-08-08] MEDS ORDERED: AZITHROMYCIN 500MG/250ML 250 ML IV NR (01:15)
[2022-08-08] MEDS ORDERED: CEFTRIAXONE 1 G PREMIX 50 ML IV NR (04:00)
[2022-08-08] MEDS ORDERED: SODIUM CHLORIDE 0.9% 1,000 ML IV ONE (04:00)
[2022-08-08] MEDS ORDERED: ASPIRIN 81MG TABLET PO NR (04:00)
[2022-08-08 04:10] LABS: HEMATOCRIT. 23.7 % (36.0-48.0); HEMOGLOBIN. 7.7 g/dL (12.0-16.0); MEAN CORPUSCULAR HEMOGLOBIN 31.1 pg (28.0-32.0); MEAN CORPUSCULAR VOLUME 95.2 fL (81.0-99.0); MEAN PLATELET VOLUME 9.3 fl (7.4-10.4); RED BLOOD CELL COUNT 2.49 mill/uL (4.2-5.4)
[2022-08-08 04:24] LABS: CHLORIDE 117 mEq/L (98-107)
[2022-08-08 04:24] LABS: PLATELET 18 x1000/uL (130-400)
[2022-08-08] MEDS ORDERED: CALCIUM GLUCONATE 100MG/ML 10ML VIAL IV ONE (04:30)
[2022-08-08] MEDS ORDERED: ATROPINE SULFATE 1MG/ML VIAL IV ONE (04:45)
[2022-08-08] MEDS ORDERED: DOPAMINE 400MG/250ML PREMIX 250 ML IV ONE (05:00)
[2022-08-08] MEDS ORDERED: DOPAMINE 400MG/250ML PREMIX 250 ML IV NR (05:15)
[2022-08-08] MEDS ORDERED: IPRATROPIUM/ALBUTEROL 0.5-3(2.5)MG/3ML NEB HHN PRN (07:15)
[2022-08-08] MEDS: BENZONATATE 100MG CAPSULE PO SCH ×3 (08:00→23:47)
[2022-08-08 08:59] LABS: BG BASE EXCESS -5.7 mmol/L (-2.0-2.0); BG CARBOXYHEMOGLOBIN 0.3 % (0.5-1.5); BG DEOXYHEMOGLOBIN 0.6 % (0.0-5.0); BG FRACTION INSPIRED OXYGEN 100; BG HCO3 ACT 22.1 mmol/L (22.0-26.0); BG METHEMOGLOBIN 0.2 % (0.0-1.5); BG OXYGEN SATURATION 99.4 % (92.0-98.5); BG OXYHEMOGLOBIN 98.9 % (94.0-97.0); BG PCO2 56.5 mmHg (35.0-45.0); BG PH 7.211 (7.350-7.450); BG PO2 253.7 mmHg (75.0-100.0); BG SAMPLE SITE RIGHT RADIAL; BG TOTAL HEMOGLOBIN 8.6 g/dL (12.0-18.0); BG VENT MODE MASK - NRB
[2022-08-08] MEDS ORDERED: LIDOCAINE HCL 1% 30ML VIAL (10MG/ML) ONE (09:11)
[2022-08-08] MEDS: DOPAMINE 800MG PREMIX (DOUBLE) 250 ML IV PRN ×2 (10:15→19:56)
[2022-08-08 10:55] LABS: INR 1.1; PROTHROMBIN TIME 11.9 sec (9.6-11.0)
[2022-08-08 11:07] LABS: T4 FREE 1.27 ng/dL (0.76-1.46)
[2022-08-08] MEDS: CEFEPIME 1,000 MG in DEXTROSE 5% WATER 50 ML IV SCH ×2 (11:25→20:00)
[2022-08-08 13:07] LABS: PLATELET ESTIMATE MARKEDLY DECREASED
[2022-08-08] MEDS: NOREPINEPHRINE 32 MG in DEXT 5% WATER 218 ML IV PRN (13:19)
[2022-08-08] MEDS: IPRATROPIUM/ALBUTEROL 0.5-3(2.5)MG/3ML NEB HHN SCH ×2 (13:20→21:00)
[2022-08-08] MEDS: METRONIDAZOLE 500 MG PREMIX 100 ML IV SCH ×2 (14:45→21:06)
[2022-08-08] MEDS: DOXYCYCLINE 100 MG in DEXT 5% WATER 100 ML IV SCH (14:45)
[2022-08-08] MEDS: SODIUM CHLORIDE 0.9% 1,000 ML IV SCH (15:32)
[2022-08-08 16:00] LABS: CLARITY URINE CLEAR (CLEAR); COLOR URINE YELLOW (YELLOW); KETONES URINE TRACE (NEGATIVE); LEUKOCYTE ESTERASE URINE NEGATIVE (NEGATIVE); NITRITE URINE NEGATIVE (NEGATIVE); OCCULT BLOOD URINE 2+ (NEGATIVE); PROTEIN URINE 2+ (NEGATIVE); SPECIFIC GRAVITY URINE 1.027 (1.005-1.030); UROBILINOGEN URINE 0.2 E.U./dL (0.2-1.0)
[2022-08-08 18:32] LABS: BASOPHILS % 0.4 % (0.0-2.0); HEMATOCRIT. 26.7 % (36.0-48.0); HEMOGLOBIN. 8.8 g/dL (12.0-16.0); LYMPHOCYTES % 14.7 % (20.0-50.0); MEAN CORPUSCULAR HEMOGLOBIN 31.1 pg (28.0-32.0); MEAN CORPUSCULAR VOLUME 94.4 fL (81.0-99.0); NEUTROPHILS % 81.9 % (40.0-76.0); RED BLOOD CELL COUNT 2.83 mill/uL (4.2-5.4); RED CELL DISTRIBUTION WIDTH 20.4 % (11.6-14.6)
[2022-08-08 18:40] LABS: CHLORIDE 114 mEq/L (98-107)
[2022-08-08 18:48] LABS: PLATELET 26 x1000/uL (130-400)
[2022-08-09] VITALS (128 sets, daily range): BP systolic 44–147; BP diastolic 17–103
[2022-08-09] MEDS: SODIUM CHLORIDE 0.9% 1,000 ML IV SCH ×3 (00:46→20:15)
[2022-08-09] MEDS: DOXYCYCLINE 100 MG in DEXT 5% WATER 100 ML IV SCH ×2 (02:56→14:15)
[2022-08-09] MEDS: METRONIDAZOLE 500 MG PREMIX 100 ML IV SCH ×3 (05:19→21:06)
[2022-08-09] MEDS: DOPAMINE 800MG PREMIX (DOUBLE) 250 ML IV PRN (05:21)
[2022-08-09 05:39] LABS: HEMATOCRIT. 23.3 % (36.0-48.0); HEMOGLOBIN. 7.7 g/dL (12.0-16.0); MEAN CORPUSCULAR HEMOGLOBIN 31.3 pg (28.0-32.0); MEAN CORPUSCULAR VOLUME 94.3 fL (81.0-99.0); MEAN PLATELET VOLUME 10.2 fl (7.4-10.4); RED BLOOD CELL COUNT 2.47 mill/uL (4.2-5.4); RED CELL DISTRIBUTION WIDTH 20.3 % (11.6-14.6)
[2022-08-09 06:37] LABS: PLATELET 34 x1000/uL (130-400)
[2022-08-09] MEDS ORDERED: LIDOCAINE HCL/PF 1% 10 MG/ML 5ML VIAL ONE (07:51)
[2022-08-09] MEDS ORDERED: DEXTROSE 50% WATER 50ML SYRINGE IV NR (08:00)
[2022-08-09] MEDS: BENZONATATE 100MG CAPSULE PO SCH ×2 (08:00→15:22)
[2022-08-09] MEDS: CEFEPIME 1,000 MG in DEXTROSE 5% WATER 50 ML IV SCH ×2 (08:34→21:05)
[2022-08-09 08:44] LABS: BG CARBOXYHEMOGLOBIN 0.1 % (0.5-1.5); BG DEOXYHEMOGLOBIN 1.1 % (0.0-5.0); BG FRACTION INSPIRED OXYGEN 40; BG HCO3 ACT 20.5 mmol/L (22.0-26.0); BG METHEMOGLOBIN 0.3 % (0.0-1.5); BG OXYGEN SATURATION 98.9 % (92.0-98.5); BG OXYHEMOGLOBIN 98.5 % (94.0-97.0); BG PCO2 34.7 mmHg (35.0-45.0); BG PH 7.389 (7.350-7.450); BG PO2 128.5 mmHg (75.0-100.0); BG SAMPLE SITE LEFT BRACHIAL; BG TOTAL HEMOGLOBIN 7.7 g/dL (12.0-18.0); BG VENT MODE NASAL CANNULA
[2022-08-09] MEDS ORDERED: FENTANYL CITRATE/PF 2,500 MCG in DEXT 5% WATER 200 ML IV PRN (09:15)
[2022-08-09] MEDS: FENTANYL CITRATE/PF 2,500 MCG in SODIUM CHLORIDE 0.9% 200 ML IV PRN (09:23)
[2022-08-09] MEDS ORDERED: DOPAMINE 800MG PREMIX (DOUBLE) 250 ML IV PRN (09:53)
[2022-08-09] MEDS ORDERED: PHENYLEPHRINE 50 MG in DEXT 5% WATER 245 ML IV PRN (10:00)
[2022-08-09] MEDS: BLOOD SUGAR DIAGNOSTIC STRIP TEST SCH ×3 (11:22→20:56)
[2022-08-09 11:50] LABS: BG BASE EXCESS -4.6 mmol/L (-2.0-2.0); BG CARBOXYHEMOGLOBIN 0.9 % (0.5-1.5); BG DEOXYHEMOGLOBIN 0.4 % (0.0-5.0); BG FRACTION INSPIRED OXYGEN 50; BG HCO3 ACT 19.9 mmol/L (22.0-26.0); BG METHEMOGLOBIN 1.1 % (0.0-1.5); BG OXYGEN SATURATION 99.6 % (92.0-98.5); BG OXYHEMOGLOBIN 97.6 % (94.0-97.0); BG PCO2 33.7 mmHg (35.0-45.0); BG PH 7.389 (7.350-7.450); BG PO2 209.3 mmHg (75.0-100.0); BG SAMPLE SITE RIGHT RADIAL; BG TOTAL HEMOGLOBIN 7.8 g/dL (12.0-18.0); BG VENT MODE VENT - AC
[2022-08-09] MEDS: NOREPINEPHRINE 32 MG in DEXT 5% WATER 218 ML IV PRN (14:22)
[2022-08-10] VITALS (61 sets, daily range): BP systolic 90–184; BP diastolic 37–93
[2022-08-10] MEDS: DOPAMINE 800MG PREMIX (DOUBLE) 250 ML IV PRN (00:27)
[2022-08-10] MEDS: BENZONATATE 100MG CAPSULE PO SCH ×4 (00:30→23:40)
[2022-08-10] MEDS: DEXTROSE 50% WATER 50ML SYRINGE IV PRN ×2 (00:48→21:18)
[2022-08-10] MEDS: BLOOD SUGAR DIAGNOSTIC STRIP TEST SCH ×7 (00:49→23:47)
[2022-08-10] MEDS: DOXYCYCLINE 100 MG in DEXT 5% WATER 100 ML IV SCH ×2 (01:01→16:05)
[2022-08-10] MEDS: IPRATROPIUM/ALBUTEROL 0.5-3(2.5)MG/3ML NEB HHN SCH ×5 (01:28→20:49)
[2022-08-10] MEDS: FENTANYL CITRATE/PF 2,500 MCG in SODIUM CHLORIDE 0.9% 200 ML IV PRN (04:55)
[2022-08-10] MEDS: METRONIDAZOLE 500 MG PREMIX 100 ML IV SCH ×3 (05:14→21:20)
[2022-08-10 06:57] LABS: MEAN CORPUSCULAR HEMOGLOBIN 31.4 pg (28.0-32.0); MEAN CORPUSCULAR VOLUME 94.7 fL (81.0-99.0); MEAN PLATELET VOLUME 8.9 fl (7.4-10.4); RED BLOOD CELL COUNT 2.03 mill/uL (4.2-5.4); RED CELL DISTRIBUTION WIDTH 20.4 % (11.6-14.6)
[2022-08-10 07:00] LABS: NUCLEATED RED BLOOD CELLS 6 /100 WBC; PLATELET ESTIMATE MARKEDLY DECREASED
[2022-08-10 07:09] LABS: HEMOGLOBIN. 6.4 g/dL (12.0-16.0)
[2022-08-10 07:10] LABS: HEMATOCRIT. 19.2 % (36.0-48.0); PLATELET 35 x1000/uL (130-400)
[2022-08-10 08:29] LABS: BG BASE EXCESS -5.5 mmol/L (-2.0-2.0); BG CARBOXYHEMOGLOBIN 1.2 % (0.5-1.5); BG DEOXYHEMOGLOBIN 4.9 % (0.0-5.0); BG HCO3 ACT 20.4 mmol/L (22.0-26.0); BG METHEMOGLOBIN 0.5 % (0.0-1.5); BG OXYHEMOGLOBIN 93.4 % (94.0-97.0); BG PCO2 42.2 mmHg (35.0-45.0); BG PH 7.302 (7.350-7.450); BG PO2 79.7 mmHg (75.0-100.0); BG SAMPLE SITE RIGHT RADIAL; BG TOTAL HEMOGLOBIN 6.5 g/dL (12.0-18.0); BG VENT MODE VENT - AC
[2022-08-10] MEDS: SODIUM CHLORIDE 0.9% 1,000 ML IV SCH ×3 (09:00→17:26)
[2022-08-10] MEDS ORDERED: LIDOCAINE HCL 1% 30ML VIAL (10MG/ML) ONE (09:27)
[2022-08-10] MEDS ORDERED: SODIUM BICARBONATE 8.4% 1 MEQ/ML 50ML SYR IV NR (09:45)
[2022-08-10] MEDS: MAGNESIUM OXIDE 400MG TABLET NG SCH (10:00)
[2022-08-10] MEDS: CEFEPIME 1,000 MG in DEXTROSE 5% WATER 50 ML IV SCH ×2 (11:32→21:19)
[2022-08-10] MEDS ORDERED: MAGNESIUM 2 G PREMIX 50 ML IV NR (12:00)
[2022-08-10] MEDS: DEXTROSE 5% WATER 1,000 ML IV SCH (22:45)
[2022-08-11] VITALS (87 sets, daily range): BP systolic 72–169; BP diastolic 25–123
[2022-08-11] MEDS: IPRATROPIUM/ALBUTEROL 0.5-3(2.5)MG/3ML NEB HHN SCH ×7 (01:35→18:00)
[2022-08-11] MEDS: DOXYCYCLINE 100 MG in DEXT 5% WATER 100 ML IV SCH ×2 (02:19→14:05)
[2022-08-11] MEDS: BLOOD SUGAR DIAGNOSTIC STRIP TEST SCH ×5 (04:53→20:00)
[2022-08-11] MEDS: METRONIDAZOLE 500 MG PREMIX 100 ML IV SCH ×3 (05:05→21:45)
[2022-08-11 07:11] LABS: CHLORIDE 115 mEq/L (98-107)
[2022-08-11 07:33] LABS: MEAN CORPUSCULAR HEMOGLOBIN 31.2 pg (28.0-32.0); MEAN CORPUSCULAR VOLUME 92.9 fL (81.0-99.0); RED BLOOD CELL COUNT 2.06 mill/uL (4.2-5.4); RED CELL DISTRIBUTION WIDTH 18.4 % (11.6-14.6)
[2022-08-11] MEDS: BENZONATATE 100MG CAPSULE PO SCH ×2 (08:00→16:33)
[2022-08-11 08:16] LABS: HEMATOCRIT 19.2 % (36.0-48.0); HEMOGLOBIN 6.4 g/dL (12.0-16.0); PLATELET 30 x1000/uL (130-400)
[2022-08-11 08:53] LABS: BG BASE EXCESS -1.7 mmol/L (-2.0-2.0); BG CARBOXYHEMOGLOBIN 1.4 % (0.5-1.5); BG DEOXYHEMOGLOBIN 1.1 % (0.0-5.0); BG FRACTION INSPIRED OXYGEN 35; BG HCO3 ACT 22.3 mmol/L (22.0-26.0); BG METHEMOGLOBIN 0.6 % (0.0-1.5); BG OXYGEN SATURATION 98.9 % (92.0-98.5); BG OXYHEMOGLOBIN 96.9 % (94.0-97.0); BG PCO2 34.2 mmHg (35.0-45.0); BG PH 7.433 (7.350-7.450); BG PO2 117.6 mmHg (75.0-100.0); BG SAMPLE SITE RIGHT BRACHIAL; BG TOTAL HEMOGLOBIN 7.5 g/dL (12.0-18.0); BG VENT MODE VENT - AC
[2022-08-11] MEDS: DEXTROSE 5% WATER 1,000 ML IV SCH (09:13)
[2022-08-11] MEDS: CEFEPIME 1,000 MG in DEXTROSE 5% WATER 50 ML IV SCH ×2 (09:30→21:45)
[2022-08-11] MEDS: MAGNESIUM OXIDE 400MG TABLET NG SCH (09:30)
[2022-08-11] MEDS ORDERED: ALBUMIN HUMAN 12.5G/250ML (5%) IV PRN (11:00)
[2022-08-11] MEDS: DEXT 5%/0.9% NACL 1,000 ML IV SCH ×2 (11:38→21:47)
[2022-08-11] MEDS: PANTOPRAZOLE SODIUM 40 MG/VIAL IV SCH (13:16)
[2022-08-11 15:19] LABS: BG BASE EXCESS -3.9 mmol/L (-2.0-2.0); BG CARBOXYHEMOGLOBIN 1.1 % (0.5-1.5); BG DEOXYHEMOGLOBIN 1.9 % (0.0-5.0); BG FRACTION INSPIRED OXYGEN 35; BG HCO3 ACT 20.1 mmol/L (22.0-26.0); BG METHEMOGLOBIN 0.6 % (0.0-1.5); BG OXYGEN SATURATION 98.1 % (92.0-98.5); BG OXYHEMOGLOBIN 96.4 % (94.0-97.0); BG PCO2 31.8 mmHg (35.0-45.0); BG PH 7.418 (7.350-7.450); BG PO2 107.7 mmHg (75.0-100.0); BG SAMPLE SITE RIGHT RADIAL; BG TOTAL HEMOGLOBIN 8.1 g/dL (12.0-18.0); BG VENT MODE VENT - CPAP
[2022-08-11 16:55] LABS: INR 1.2; PROTHROMBIN TIME 13.1 sec (9.6-11.0)
[2022-08-11 17:13] LABS: TOTAL IRON BINDING CAPACITY 107 ug/dL (250-450)
[2022-08-11 17:27] LABS: HEPATITIS B SURFACE ANTIGEN NEGATIVE
[2022-08-11 21:07] LABS: BG BASE EXCESS -3.3 mmol/L (-2.0-2.0); BG CARBOXYHEMOGLOBIN 0.2 % (0.5-1.5); BG FRACTION INSPIRED OXYGEN 100; BG HCO3 ACT 23.2 mmol/L (22.0-26.0); BG METHEMOGLOBIN 0.5 % (0.0-1.5); BG OXYHEMOGLOBIN 98.3 % (94.0-97.0); BG PCO2 49.2 mmHg (35.0-45.0); BG PH 7.292 (7.350-7.450); BG PO2 211.8 mmHg (75.0-100.0); BG SAMPLE SITE RIGHT BRACHIAL; BG VENT MODE MASK - NRB
[2022-08-12] VITALS (47 sets, daily range): BP systolic 101–164; BP diastolic 57–105
[2022-08-12] MEDS ORDERED: METHYLPREDNISOLONE SOD SUCC 125 MG/2 ML VIAL IV NR (00:30)
[2022-08-12] MEDS: IPRATROPIUM/ALBUTEROL 0.5-3(2.5)MG/3ML NEB HHN SCH ×4 (00:33→18:00)
[2022-08-12] MEDS: BENZONATATE 100MG CAPSULE PO SCH ×4 (01:11→23:37)
[2022-08-12] MEDS: BLOOD SUGAR DIAGNOSTIC STRIP TEST SCH ×7 (04:00→23:38)
[2022-08-12] MEDS: DOXYCYCLINE 100 MG in DEXT 5% WATER 100 ML IV SCH ×2 (04:51→14:33)
[2022-08-12] MEDS: METHYLPREDNISOLONE SOD SUCC 125 MG/2 ML VIAL IV SCH ×4 (05:45→23:37)
[2022-08-12] MEDS: METRONIDAZOLE 500 MG PREMIX 100 ML IV SCH ×3 (05:45→21:55)
[2022-08-12 06:46] LABS: HEMATOCRIT. 27.2 % (36.0-48.0); HEMOGLOBIN. 9.1 g/dL (12.0-16.0); MEAN CORPUSCULAR HEMOGLOBIN 30.8 pg (28.0-32.0); MEAN CORPUSCULAR VOLUME 91.7 fL (81.0-99.0); MEAN PLATELET VOLUME 8.5 fl (7.4-10.4); RED BLOOD CELL COUNT 2.97 mill/uL (4.2-5.4); RED CELL DISTRIBUTION WIDTH 18.4 % (11.6-14.6)
[2022-08-12 07:16] LABS: CHLORIDE 119 mEq/L (98-107)
[2022-08-12 07:37] LABS: PLATELET 28 x1000/uL (130-400)
[2022-08-12] MEDS: DEXT 5%/0.9% NACL 1,000 ML IV SCH ×3 (08:00→19:56)
[2022-08-12] MEDS: CEFEPIME 1,000 MG in DEXTROSE 5% WATER 50 ML IV SCH ×2 (08:10→21:55)
[2022-08-12] MEDS: PANTOPRAZOLE SODIUM 40 MG/VIAL IV SCH (08:10)
[2022-08-12] MEDS ORDERED: GLYCOPYRROLATE 0.2MG/ML VIAL 5ML IV PRN (08:30)
[2022-08-12] MEDS: MAGNESIUM OXIDE 400MG TABLET NG SCH (08:34)
[2022-08-12 08:57] LABS: BG BASE EXCESS -2.2 mmol/L (-2.0-2.0); BG CARBOXYHEMOGLOBIN 1.6 % (0.5-1.5); BG DEOXYHEMOGLOBIN 1.2 % (0.0-5.0); BG FRACTION INSPIRED OXYGEN 60; BG HCO3 ACT 22.8 mmol/L (22.0-26.0); BG METHEMOGLOBIN 0.3 % (0.0-1.5); BG OXYGEN SATURATION 98.8 % (92.0-98.5); BG OXYHEMOGLOBIN 96.9 % (94.0-97.0); BG PCO2 39.7 mmHg (35.0-45.0); BG PH 7.377 (7.350-7.450); BG PO2 107.7 mmHg (75.0-100.0); BG SAMPLE SITE RIGHT RADIAL; BG TOTAL HEMOGLOBIN 9.7 g/dL (12.0-18.0); BG VENT MODE COOL AEROSOL
[2022-08-12] MEDS ORDERED: LORAZEPAM 2MG/ML CPJ IV NR (09:15)
[2022-08-12 10:20] LABS: NUCLEATED RED BLOOD CELLS 1 /100 WBC; PLATELET ESTIMATE MARKEDLY DECREASED
[2022-08-12] MEDS ORDERED: LORAZEPAM 2MG/ML CPJ IV PRN (19:00)
[2022-08-13] VITALS (39 sets, daily range): BP systolic 106–172; BP diastolic 59–134
[2022-08-13] MEDS ORDERED: DIATR MEGLU/DIATRIZOATE SOLN 30ML ONE (00:58)
[2022-08-13] MEDS: IPRATROPIUM/ALBUTEROL 0.5-3(2.5)MG/3ML NEB HHN SCH ×4 (00:58→21:40)
[2022-08-13] MEDS: DOXYCYCLINE 100 MG in DEXT 5% WATER 100 ML IV SCH ×2 (02:16→13:48)
[2022-08-13] MEDS: BLOOD SUGAR DIAGNOSTIC STRIP TEST SCH ×5 (04:00→19:50)
[2022-08-13] MEDS ORDERED: IOHEXOL-300 100 ML BOTTLE ONE (05:02)
[2022-08-13] MEDS: METRONIDAZOLE 500 MG PREMIX 100 ML IV SCH ×2 (05:24→13:48)
[2022-08-13] MEDS: METHYLPREDNISOLONE SOD SUCC 125 MG/2 ML VIAL IV SCH ×4 (05:24→23:46)
[2022-08-13 05:45] LABS: MEAN CORPUSCULAR HEMOGLOBIN 31.1 pg (28.0-32.0); MEAN CORPUSCULAR VOLUME 91.2 fL (81.0-99.0); MEAN PLATELET VOLUME 9.5 fl (7.4-10.4); RED BLOOD CELL COUNT 2.26 mill/uL (4.2-5.4); RED CELL DISTRIBUTION WIDTH 18.2 % (11.6-14.6)
[2022-08-13 05:57] LABS: CHLORIDE 121 mEq/L (98-107)
[2022-08-13] MEDS: DEXT 5%/0.9% NACL 1,000 ML IV SCH (06:11)
[2022-08-13 06:35] LABS: NUCLEATED RED BLOOD CELLS 1 /100 WBC; PLATELET ESTIMATE MARKEDLY DECREASED
[2022-08-13 07:21] LABS: HEMATOCRIT. 20.6 % (36.0-48.0); PLATELET 22 x1000/uL (130-400)
[2022-08-13] MEDS: CEFEPIME 1,000 MG in DEXTROSE 5% WATER 50 ML IV SCH (08:44)
[2022-08-13] MEDS: PANTOPRAZOLE SODIUM 40 MG/VIAL IV SCH (08:44)
[2022-08-13] MEDS: BENZONATATE 100MG CAPSULE PO SCH ×3 (08:44→23:45)
[2022-08-13] MEDS: MAGNESIUM OXIDE 400MG TABLET NG SCH (08:44)
[2022-08-13] MEDS: DEXT 5%/0.2% NACL 1,000 ML IV SCH (11:37)
[2022-08-13] MEDS: KCL 20MEQ/100ML PREMIX 100 ML IV SCH ×2 (11:37→13:02)
[2022-08-13 12:35] LABS: NUCLEATED RED BLOOD CELLS 1 /100 WBC; PLATELET ESTIMATE MARKEDLY DECREASED
[2022-08-13 22:16] LABS: HEMATOCRIT 24.4 % (36.0-48.0); HEMOGLOBIN 8.2 g/dL (12.0-16.0)
[2022-08-14] VITALS (52 sets, daily range): BP systolic 102–158; BP diastolic 49–90
[2022-08-14] MEDS: BLOOD SUGAR DIAGNOSTIC STRIP TEST SCH ×7 (00:19→23:39)
[2022-08-14 02:02] LABS: HEMATOCRIT 24.4 % (36.0-48.0); HEMOGLOBIN 8.3 g/dL (12.0-16.0)
[2022-08-14] MEDS: IPRATROPIUM/ALBUTEROL 0.5-3(2.5)MG/3ML NEB HHN SCH ×4 (02:19→21:13)
[2022-08-14] MEDS: METHYLPREDNISOLONE SOD SUCC 125 MG/2 ML VIAL IV SCH (05:55)
[2022-08-14 06:13] LABS: HEMATOCRIT. 21.3 % (36.0-48.0); HEMOGLOBIN. 7.3 g/dL (12.0-16.0); LYMPHOCYTES % 8.1 % (20.0-50.0); MEAN CORPUSCULAR VOLUME 91.1 fL (81.0-99.0); MEAN PLATELET VOLUME 10.2 fl (7.4-10.4); MONOCYTES % 3.9 % (2.0-8.0); RED BLOOD CELL COUNT 2.34 mill/uL (4.2-5.4); RED CELL DISTRIBUTION WIDTH 18.5 % (11.6-14.6)
[2022-08-14 06:18] LABS: CHLORIDE 121 mEq/L (98-107)
[2022-08-14 06:40] LABS: PLATELET 34 x1000/uL (130-400)
[2022-08-14] MEDS: PANTOPRAZOLE SODIUM 40 MG/VIAL IV SCH (08:11)
[2022-08-14] MEDS: MAGNESIUM OXIDE 400MG TABLET NG SCH (08:11)
[2022-08-14] MEDS: BENZONATATE 100MG CAPSULE PO SCH ×3 (08:11→23:39)
[2022-08-14] MEDS: DEXT 5%/0.2% NACL 1,000 ML IV SCH (11:16)
[2022-08-14 12:07] LABS: HEMATOCRIT 23.5 % (36.0-48.0); HEMOGLOBIN 8.1 g/dL (12.0-16.0)
[2022-08-14] MEDS: ACETYLCYSTEINE 100MG/ML 10% VIAL 4ML INH SCH ×2 (14:00→21:14)
[2022-08-14] MEDS: METHYLPREDNISOLONE SOD SUCC 40 MG/ML VIAL IV SCH ×2 (15:06→22:14)
[2022-08-14 20:25] LABS: HEMATOCRIT 21.1 % (36.0-48.0); HEMOGLOBIN 7.1 g/dL (12.0-16.0)
[2022-08-15] VITALS (15 sets, daily range): BP systolic 136–163; BP diastolic 68–100
[2022-08-15 00:26] LABS: HEMOGLOBIN 7.8 g/dL (12.0-16.0)
[2022-08-15] MEDS: IPRATROPIUM/ALBUTEROL 0.5-3(2.5)MG/3ML NEB HHN SCH ×4 (01:03→20:37)
[2022-08-15] MEDS: BLOOD SUGAR DIAGNOSTIC STRIP TEST SCH ×6 (04:00→23:40)
[2022-08-15] MEDS: METHYLPREDNISOLONE SOD SUCC 40 MG/ML VIAL IV SCH ×3 (06:00→21:27)
[2022-08-15] MEDS: ACETYLCYSTEINE 100MG/ML 10% VIAL 4ML INH SCH ×2 (08:50→14:16)
[2022-08-15] MEDS: PANTOPRAZOLE SODIUM 40 MG/VIAL IV SCH (10:53)
[2022-08-15] MEDS: MAGNESIUM OXIDE 400MG TABLET NG SCH (10:53)
[2022-08-15] MEDS: GUAIFENESIN 200MG/10ML SUGAR FREE UDC PO SCH ×3 (17:20→23:39)
[2022-08-15] MEDS: DEXT 5%/0.2% NACL 1,000 ML IV SCH ×2 (17:21)
[2022-08-15] MEDS: BENZONATATE 100MG CAPSULE PO SCH ×3 (17:44→21:27)
[2022-08-16] VITALS (14 sets, daily range): BP systolic 136–161; BP diastolic 70–113
[2022-08-16] MEDS: IPRATROPIUM/ALBUTEROL 0.5-3(2.5)MG/3ML NEB HHN SCH ×4 (02:18→21:12)
[2022-08-16] MEDS: BLOOD SUGAR DIAGNOSTIC STRIP TEST SCH ×5 (03:57→20:00)
[2022-08-16] MEDS: BENZONATATE 100MG CAPSULE PO SCH ×3 (05:48→21:16)
[2022-08-16] MEDS: METHYLPREDNISOLONE SOD SUCC 40 MG/ML VIAL IV SCH ×2 (05:48→21:13)
[2022-08-16] MEDS: GUAIFENESIN 200MG/10ML SUGAR FREE UDC PO SCH ×4 (05:48→23:31)
[2022-08-16] MEDS: ACETYLCYSTEINE 100MG/ML 10% VIAL 4ML INH SCH ×2 (09:03→14:38)
[2022-08-16] MEDS: PANTOPRAZOLE SODIUM 40 MG/VIAL IV SCH (10:11)
[2022-08-16] MEDS: MAGNESIUM OXIDE 400MG TABLET NG SCH (10:45)
[2022-08-16 16:40] LABS: MEAN CORPUSCULAR VOLUME 92.2 fL (81.0-99.0); PLATELET 75 x1000/uL (130-400); RED BLOOD CELL COUNT 2.18 mill/uL (4.2-5.4); RED CELL DISTRIBUTION WIDTH 17.9 % (11.6-14.6)
[2022-08-16 16:56] LABS: CHLORIDE 114 mEq/L (98-107)
[2022-08-16 16:59] LABS: HEMOGLOBIN. 6.8 g/dL (12.0-16.0)
[2022-08-16 17:00] LABS: HEMATOCRIT. 20.1 % (36.0-48.0)
[2022-08-16 18:59] LABS: PLATELET ESTIMATE DECREASED
[2022-08-16] MEDS: OLANZAPINE 10MG TABLET PO SCH (19:23)
[2022-08-16] MEDS: DEXT 5%/0.2% NACL 1,000 ML IV SCH (19:31)
[2022-08-16] MEDS: LEVETIRACETAM 500MG TABLET PO SCH (21:13)
[2022-08-16] MEDS: MIRTAZAPINE 15MG TABLET PO SCH (21:14)
[2022-08-16] MEDS: OXCARBAZEPINE 300MG TABLET PO SCH (21:16)
[2022-08-17] VITALS (17 sets, daily range): BP systolic 147–174; BP diastolic 76–98
[2022-08-17] MEDS: ACETYLCYSTEINE 200MG/ML 20% VIAL 4ML INH SCH (02:00)
[2022-08-17] MEDS: IPRATROPIUM/ALBUTEROL 0.5-3(2.5)MG/3ML NEB HHN SCH ×4 (02:00→20:29)
[2022-08-17] MEDS: BLOOD SUGAR DIAGNOSTIC STRIP TEST SCH ×7 (04:00→23:37)
[2022-08-17] MEDS: GUAIFENESIN 200MG/10ML SUGAR FREE UDC PO SCH ×4 (05:09→23:37)
[2022-08-17] MEDS: BENZONATATE 100MG CAPSULE PO SCH ×3 (05:12→22:00)
[2022-08-17 06:40] LABS: HEMATOCRIT. 25.7 % (36.0-48.0); HEMOGLOBIN. 8.6 g/dL (12.0-16.0); MEAN CORPUSCULAR HEMOGLOBIN 30.7 pg (28.0-32.0); MEAN CORPUSCULAR VOLUME 91.5 fL (81.0-99.0); RED BLOOD CELL COUNT 2.81 mill/uL (4.2-5.4); RED CELL DISTRIBUTION WIDTH 16.8 % (11.6-14.6)
[2022-08-17] MEDS: METHYLPREDNISOLONE SOD SUCC 40 MG/ML VIAL IV SCH ×2 (09:11→21:52)
[2022-08-17] MEDS: OXCARBAZEPINE 300MG TABLET PO SCH ×2 (09:12→21:52)
[2022-08-17] MEDS: MAGNESIUM OXIDE 400MG TABLET NG SCH (09:12)
[2022-08-17] MEDS: PHENYTOIN SODIUM EXTENDED 100MG CAPSULE PO SCH (09:12)
[2022-08-17] MEDS: PANTOPRAZOLE SODIUM 40 MG/VIAL IV SCH (09:13)
[2022-08-17] MEDS: AMLODIPINE 10MG TABLET PO SCH (09:14)
[2022-08-17] MEDS: OLANZAPINE 10MG TABLET PO SCH ×2 (09:16→17:00)
[2022-08-17] MEDS: LEVETIRACETAM 500MG TABLET PO SCH ×2 (09:17→21:53)
[2022-08-17 10:52] LABS: CHLORIDE 115 mEq/L (98-107)
[2022-08-17] MEDS: HYDRALAZINE HCL 50MG TABLET PO SCH ×3 (14:03→22:00)
[2022-08-17] MEDS: DEXT 5%/0.2% NACL 1,000 ML IV SCH (15:30)
[2022-08-17 15:31] LABS: NUCLEATED RED BLOOD CELLS 5 /100 WBC
[2022-08-17 15:33] LABS: MEAN PLATELET VOLUME 10.7 fl (7.4-10.4); PLATELET 99 x1000/uL (130-400); PLATELET ESTIMATE DECREASED
[2022-08-17] MEDS: MIRTAZAPINE 15MG TABLET PO SCH (21:52)
[2022-08-18] VITALS (12 sets, daily range): BP systolic 122–157; BP diastolic 71–97
[2022-08-18] MEDS: ACETYLCYSTEINE 200MG/ML 20% VIAL 4ML INH SCH ×3 (02:49→15:25)
[2022-08-18] MEDS: IPRATROPIUM/ALBUTEROL 0.5-3(2.5)MG/3ML NEB HHN SCH ×4 (02:49→20:02)
[2022-08-18] MEDS: BLOOD SUGAR DIAGNOSTIC STRIP TEST SCH ×4 (04:00→16:00)
[2022-08-18] MEDS: BENZONATATE 100MG CAPSULE PO SCH ×2 (05:22→14:48)
[2022-08-18] MEDS: HYDRALAZINE HCL 50MG TABLET PO SCH ×2 (05:23→14:49)
[2022-08-18] MEDS: GUAIFENESIN 200MG/10ML SUGAR FREE UDC PO SCH ×3 (05:24→17:06)
[2022-08-18 07:57] LABS: CHLORIDE 111 mEq/L (98-107)
[2022-08-18] MEDS: PHENYTOIN SODIUM EXTENDED 100MG CAPSULE PO SCH (08:54)
[2022-08-18] MEDS: METHYLPREDNISOLONE SOD SUCC 40 MG/ML VIAL IV SCH (08:54)
[2022-08-18] MEDS: PANTOPRAZOLE SODIUM 40 MG/VIAL IV SCH (08:54)
[2022-08-18] MEDS: OXCARBAZEPINE 300MG TABLET PO SCH (08:55)
[2022-08-18] MEDS: MAGNESIUM OXIDE 400MG TABLET NG SCH (08:55)
[2022-08-18] MEDS: OLANZAPINE 10MG TABLET PO SCH ×2 (08:55→17:06)
[2022-08-18] MEDS: LEVETIRACETAM 500MG TABLET PO SCH (08:55)
[2022-08-18] MEDS: AMLODIPINE 10MG TABLET PO SCH (08:56)
[2022-08-18] MEDS: DEXT 5%/0.2% NACL 1,000 ML IV SCH (11:30)
[2022-08-18 17:25] LABS: HEMATOCRIT. 26.1 % (36.0-48.0); HEMOGLOBIN. 8.9 g/dL (12.0-16.0); MEAN CORPUSCULAR HEMOGLOBIN 31.1 pg (28.0-32.0); MEAN CORPUSCULAR VOLUME 91.4 fL (81.0-99.0); MEAN PLATELET VOLUME 10.6 fl (7.4-10.4); PLATELET 135 x1000/uL (130-400); RED BLOOD CELL COUNT 2.86 mill/uL (4.2-5.4); RED CELL DISTRIBUTION WIDTH 16.9 % (11.6-14.6)
[2022-08-18 18:50] LABS: NUCLEATED RED BLOOD CELLS 5 /100 WBC; PLATELET ESTIMATE NORMAL
[2022-08-19] MEDS ORDERED: PREDNISONE 20MG TABLET PO SCH (09:00)
== END 2022-08-18 20:00 | disposition home or self-care (01) | DRG 720 ==
LOC: ER 17:04 → EDBEDREQ 08-08 04:59 → EDBEDREQSVC 08-08 04:59 → EDBEDREQTM 08-08 04:59 → ENRESERV 08-08 06:59 → MICUSO 08-08 08:00 → CVICU 08-13 20:37 → 5EST 08-14 14:06
PROVIDERS: ADMIT Internal Medicine
PROC: 02HV33Z Insertion of Infusion Device into Superior Vena Cava, Percutaneous Approach (ICD-10-PCS; 2022-08-08)
PROC: B548ZZA Ultrasonography of Superior Vena Cava, Guidance (ICD-10-PCS; 2022-08-08)
PROC: 5A1945Z Respiratory Ventilation, 24-96 Consecutive Hours (ICD-10-PCS; principal; 2022-08-09)
PROC: 0BH17EZ Insertion of Endotracheal Airway into Trachea, Via Natural or Artificial Opening (ICD-10-PCS; 2022-08-09)
PROC: 05HY33Z Insertion of Infusion Device into Upper Vein, Percutaneous Approach (ICD-10-PCS; 2022-08-09)
PROC: 30233R1 Transfusion of Nonautologous Platelets into Peripheral Vein, Percutaneous Approach (ICD-10-PCS; 2022-08-09)
PROC: 02H633Z Insertion of Infusion Device into Right Atrium, Percutaneous Approach (ICD-10-PCS; 2022-08-10)
PROC: B548ZZA Ultrasonography of Superior Vena Cava, Guidance (ICD-10-PCS; 2022-08-10)
PROC: 30233N1 Transfusion of Nonautologous Red Blood Cells into Peripheral Vein, Percutaneous Approach (ICD-10-PCS; 2022-08-10)
DX: A41.9 Sepsis, unspecified organism (principal); J96.01 Acute respiratory failure with hypoxia; J69.0 Pneumonitis due to inhalation of food and vomit; R65.21 Severe sepsis with septic shock; G93.41 Metabolic encephalopathy; E87.20 Acidosis, unspecified; D61.818 Other pancytopenia; K92.2 Gastrointestinal hemorrhage, unspecified; E87.1 Hypo-osmolality and hyponatremia; E78.00 Pure hypercholesterolemia, unspecified; G40.909 Epilepsy, unspecified, not intractable, without status epilepticus; G93.9 Disorder of brain, unspecified; Z20.822 Contact with and (suspected) exposure to COVID-19; I10 Essential (primary) hypertension; R62.50 Unspecified lack of expected normal physiological development in childhood; F84.0 Autistic disorder; E83.42 Hypomagnesemia; I44.0 Atrioventricular block, first degree; J84.9 Interstitial pulmonary disease, unspecified; D64.9 Anemia, unspecified; D69.6 Thrombocytopenia, unspecified; R74.01 Elevation of levels of liver transaminase levels; K75.9 Inflammatory liver disease, unspecified; I95.9 Hypotension, unspecified; E16.2 Hypoglycemia, unspecified; Z85.841 Personal history of malignant neoplasm of brain; Z79.899 Other long term (current) drug therapy
CPT/HCPCS: 31500; 36415; 36573; 36600; 71045; 74178; 76700; 76705; 80048; 80053; 80076; 81003; 82140; 82270; 82375; 82607; 82728; 82746; 82805; 82962; 83036; 83540; 83550; 83605; 83735; 83880; 84145; 84439; 84443; 84484; 85014; 85018; 85025; 85027; 85044; 86705; 86709; 86803; 86850; 86900; 86920; 86945; 87070; 87106; 87340; 87426; 92610; 93005; 93306; 94002; 94003; 94640; 94667; 97161; 99285; A6261; C1725; C1769; C1893; C9113; C9803; J0456; J0461; J0610; J0692; J0696; J1265; J2060; J2920; J2930; J3010; J3475; J3480; J3490; J7030; J7042; J7050; J7060; J7608; P9016; P9034; Q9963; Q9967